=== PATIENT | female | born 1985 | race American Indian/Alaskan Native ===

== ENCOUNTER 2016-05-22 10:37 | Emergency (ER) | payer MEDICAID, OTHER ==
[2016-05-22 12:24] VITALS: BP 142/95
--- NOTE | 2016-05-22 15:32 | Emergency Department Report ---
Minor Respiratory - HPI Chief Complaint: Upper Respiratory Infection Stated Complaint: RESP/CONGESTION Time Seen by Provider: 05/22/16 15:27 Duration: 2 Days Pain Location: Throat, Nose Severity: mild Minor Respiratory: Yes Sore Throat, Yes Able to Tolerate Fluids, Yes Cough, Yes Sick Contacts (KID), Yes Chest Pain (W COUGH), Yes Fever (LAST PM), No Rhinorrhea, No Ear Pain, No Hemoptysis, No Shortness of Breath ED Review of Systems ROS: Stated complaint: RESP/CONGESTION Other details as noted in HPI Comment: All other systems reviewed and negative Constitutional: no symptoms reported Eyes: as per HPI ENT: ear pain, throat pain, congestion Respiratory: cough Cardiovascular: as per HPI Endocrine: no symptoms reported Gastrointestinal: as per HPI Genitourinary: as per HPI Musculoskeletal: as per HPI Skin: as per HPI Neurological: as per HPI Psychiatric: as per HPI Hematological/Lymphatic: as per HPI ED Past Medical Hx - Past Medical History Previous Medical History?: Yes Hx Hypertension: Yes Hx Congestive Heart Failure: No Hx Diabetes: No Hx Deep Vein Thrombosis: No Hx Renal Disease: No Hx Sickle Cell Disease: No Hx Headaches / Migraines: Yes Hx Seizures: No Hx Asthma: No Hx COPD: No Hx HIV: No - Surgical History Past Surgical History?: Yes Additional Surgical History: left knee surgeryRight ovarian cystectomy - Social History Smoking Status: Current Every Day Smoker Substance Use Type: None - Medications Home Medications: Home Medications Medication Instructions Recorded Confirmed Last Taken Type Azithromycin [Zithromax Z-LIZ] 250 mg PO DAILY #1 tablet 05/22/16 Unknown Rx Benzonatate [Tessalon Perles] 100 mg PO Q8HR #12 capsule 05/22/16 Unknown Rx Fluticasone [Flonase] 1 spray NS QDAY #1 bottle 05/22/16 Unknown Rx methylPREDNISolone [Medrol] 4 mg PO DAILY #1 tab.ds.pk 05/22/16 Unknown Rx Minor Respiratory Exam - Exam General: Vital signs noted. No distress. Alert and acting appropriately. HEENT: Yes Pharyngeal Erythema, Yes Moist Mucous Membranes, Yes Frontal Tenderness, Yes Maxillary Tenderness, No Pharyngeal Exudates, No Rhinorrhea, No Conjuctival Injection Ear: Neither TM Bulge, Neither TM Erythema, Neither EAC Pain, Neither EAC Discharge Neck: Yes Adenopathy, Yes Supple Lungs: Yes Good Air Exchange, No Wheezes, No Ronchi, No Stridor Neurologic: Alert and oriented, no deficits. Musculoskeletal: Unremarkable. ED Course Vital Signs 05/22/16 12:18 Temperature 98.3 F Pulse Rate 79 Respiratory 20 Rate Blood Pressure 142/95 O2 Sat by Pulse 99 Oximetry ED Medical Decision Making - Medical Decision Making CHILD ILL W SAME COLD COUGH CONGESTION VSS NO FEVER NON ILL APPEARING Critical care attestation.: If time is entered above; I have spent that time in minutes in the direct care of this critically ill patient, excluding procedure time. ED Disposition Clinical Impression: Upper respiratory infection, Sinusitis Disposition: DISCHARGED TO HOME OR SELFCARE Is pt being admited?: No Does the pt Need Aspirin: No Condition: Good Instructions: Pharyngitis (ED), Upper Respiratory Infection (ED) Additional Instructions: REST FLUIDS MOTRIN OR TYLENOL FOR PAIN OR FEVER GOOD HAND WASHING MEDS UNTIL GONE. Prescriptions: Azithromycin [Zithromax Z-LIZ] 250 mg PO DAILY #1 tablet Benzonatate [Tessalon Perles] 100 mg PO Q8HR #12 capsule Fluticasone [Flonase] 1 spray NS QDAY #1 bottle methylPREDNISolone [Medrol] 4 mg PO DAILY #1 tab.ds.pk Referrals: ANA ALLEN MD [Primary Care Provider] - 3-5 Days Time of Disposition: 15:31
--- NOTE | 2016-05-22 15:35 | Emergency Department Report ---
Entered by TATYANA BEEBE, acting as scribe for FAITH SILVA NP. Chief Complaint: Upper Respiratory Infection Stated Complaint: RESP/CONGESTION Time Seen by Provider: 05/22/16 15:20 - HPI History of Present Illness: Patient presents to the ED c/o an upper respiratory infection. Associated symptoms include sore throat, headache, nausea, fever, cough with green sputum, vomiting with minimal blood, chest pain due to cough, drainage. - ROS Review of Systems: All other systems negative unless stated in HPI above. - Exam Vital Signs: Vital Signs 05/22/16 12:18 Temperature 98.3 F Pulse Rate 79 Respiratory 20 Rate Blood Pressure 142/95 O2 Sat by Pulse 99 Oximetry Physical Exam: Respiratory: lungs sounds clear bilaterally, no rales, no wheezes, no gallops. Neck: supple, FROM, no lymphadenopathy MSE screening note: Focused history and physical exam performed. Due to findings the following was ordered: ED Medical Decision Making - Medical Decision Making Patient seen by provider in triage area. ED Disposition [place] [facility] [place]position: DISCHARGED TO HOME OR SELFCARE Condition: Good Instructions: Pharyngitis (ED), Upper Respiratory Infection (ED) Additional Instructions: REST FLUIDS MOTRIN OR TYLENOL FOR PAIN OR FEVER GOOD HAND WASHING MEDS UNTIL GONE. Prescriptions: Azithromycin [Zithromax Z-LIZ] 250 mg PO DAILY #1 tablet Benzonatate [Tessalon Perles] 100 mg PO Q8HR #12 capsule Fluticasone [Flonase] 1 spray NS QDAY #1 bottle methylPREDNISolone [Medrol] 4 mg PO DAILY #1 tab.ds.pk Referrals: ANA ALLEN MD [Primary Care Provider] - 3-5 Days This documentation as recorded by the scribe,TATYANA BEEBE,accurately reflects the service I personally performed and the decisions made by ROBERT michaels CATHLEEN A, NP.
== END 2016-05-22 15:50 | disposition home or self-care (01) ==
LOC: ED 10:37
DX: J06.9 Acute upper respiratory infection, unspecified (principal); J32.9 Chronic sinusitis, unspecified
CPT/HCPCS: 99283

== ENCOUNTER 2017-08-11 06:45 | Emergency (ER) | payer MEDICAID ==
--- NOTE | 2017-08-11 08:07 | Emergency Department Report ---
ED Back Pain/Injury HPI - General Chief Complaint: Back Pain/Injury Stated Complaint: BACK/NECK PAIN Time Seen by Provider: 08/11/17 07:41 Source: patient Limitations: No Limitations - History of Present Illness Initial Comments: This is a 32-year-old -Spanish female who presents with neck and low back pain that started yesterday. Patient thinks she pulled something while cleaning home yesterday prior to going to work. She states her back and maybe was a little achy prior to going to work she went in any way. Patient states the symptoms increased around 0300 to low back. Patient stated she couldn't barely walk secondary to pain. Patient reports pain is 10 out of 10 on a pain scale and sharp. Patient reports pain is bilateral but worse on right lower side. Patient states pain is aggravated by movement and is nonradiating. Patient reports make pain hasn't improved that she is still requesting evaluation. Denies numbness or tingling, radiating pain, chest pain, shortness of breath, fever, nausea or vomiting. MD Complaint: back pain -: This morning Time: 03:00 Similar Symptoms Previously: No Place: home Radiation: none Severity: severe Severity scale (0 -10): 10 Quality: sharp, aching Consistency: constant Improves With: immobilization, supine Worsens With: movement, sitting upright, walking Context: unknown Associated Symptoms: denies other symptoms - Related Data Previous Rx's Medication Instructions Recorded Last Taken Type Azithromycin [Zithromax Z-LIZ] 250 mg PO DAILY #1 tablet 05/22/16 Unknown Rx Benzonatate [Tessalon Perles] 100 mg PO Q8HR #12 capsule 05/22/16 Unknown Rx Fluticasone [Flonase] 1 spray NS QDAY #1 bottle 05/22/16 Unknown Rx methylPREDNISolone [Medrol] 4 mg PO DAILY #1 tab.ds.pk 05/22/16 Unknown Rx Acetaminophen/Codeine [Tylenol 1 tab PO Q6H PRN #12 tab 08/11/17 Unknown Rx /Codeine # 3 tab] Cyclobenzaprine HCl [Flexeril 5 MG 5 mg PO TID PRN #15 tab 08/11/17 Unknown Rx TAB] Ibuprofen [Motrin 800 MG tab] 800 mg PO Q8HR PRN #20 tablet 08/11/17 Unknown Rx Allergies Allergy/AdvReac Type Severity Reaction Status Date / Time butorphanol tartrate Allergy Swelling Verified 08/11/17 06:56 [From Stadol] Sulfa (Sulfonamide Allergy Itching Verified 08/11/17 06:56 Antibiotics) ED Review of Systems ROS: Stated complaint: BACK/NECK PAIN Other details as noted in HPI Constitutional: denies: chills, fever Respiratory: denies: cough, shortness of breath, wheezing Cardiovascular: denies: chest pain, palpitations Gastrointestinal: denies: abdominal pain, nausea, vomiting, diarrhea Genitourinary: denies: urgency, dysuria, frequency, discharge Musculoskeletal: back pain (bilateral low back pain, worse on the right), arthralgia (neck pain). denies: joint swelling Skin: denies: rash, lesions Neurological: denies: headache, weakness, paresthesias Psychiatric: denies: anxiety, depression ED Past Medical Hx Family history: no significant family history ED Back Pain Physical Exam - Exam General: Vital signs noted. No distress. Alert and acting appropriately. Back/Abdomen: Yes Sacroiliac Tenderness (bilateral), Yes Flank Tenderness ( right flank), No Abdominal Tenderness, No Perithoracic Tenderness, No Perilumbar Tenderness, No Straight Leg Raise Pain Neuro: Yes Normal Sensation, Yes Normal DTR's, Yes Normal Gait, No Motor Weakness ED Course Vital Signs 08/11/17 06:56 Temperature 98.5 F Pulse Rate 92 H Respiratory 16 Rate Blood Pressure 118/77 O2 Sat by Pulse 97 Oximetry Ed Back Pain Tests - Tests Tests: Normal UA, Abnormal X Rays ED Medical Decision Making - Radiology Data Radiology results: report reviewed EXAM: XR SPINE LUMBOSACRAL 2-3V HISTORY: right side low back pain TECHNIQUE: Three views lumbar spine. PRIORS: None currently available. FINDINGS: Lordotic alignment. Vertebral body heights are uniform. No fracture. Mild to moderate disc space narrowing L5-S1. Otherwise, disc spaces are uniform. No subluxation. Posterior elements are intact. Prevertebral soft tissues are unremarkable. No scoliosis. No suspicious osseous lesions. No vertebral anomalies. SI joints are unremarkable. IMPRESSION: Exut-np-wgesiwjf discogenic disease at L5-S1. XR C-Spine: Mild degenerative disc at C5 to C7. Nonspecific straightening of the normal lordotic alignment. - Medical Decision Making This is a 32 y.o. female presents with neck and low back pain that started yesterday after cleaning home. Patient was examined by me. Vitals are normal and patient is in slight distress. Given [place] 5/325 mg by mouth once. Obtained a urinalysis, urine hCG, x-ray of C-spine and L-spine. X-rays read by radiologist. Alwl-gy-mxazerts discogenic disease at L5-S1. XR C-Spine: Mild degenerative disc at C5 to C7. Nonspecific straightening of the normal lordotic alignment. Urinalysis and urine hCG negative. Patient informed of results. Start ibuprofen, Tylenol #3, and cyclobenzaprine for muscle strain. Plan discussed with patient to discharge home and treat outpatient. Patient discharged home in stable condition. Follow up with PCP in 2-3 days Critical care attestation.: If time is entered above; I have spent that time in minutes in the direct care of this critically ill patient, excluding procedure time. ED Disposition Clinical Impression: Strain of muscle, fascia and tendon of lower back, initial encounter, Neck pain Low back pain Qualifiers: Chronicity: acute Back pain laterality: right Sciatica presence: without sciatica Qualified Code(s): M54.5 - Low back pain Disposition: DC- TO HOME OR SELFCARE Is pt being admited?: No Does the pt Need Aspirin: No Condition: Stable Instructions: Low Back Strain (ED), Cervical Radiculopathy (ED) Additional Instructions: Rest Use ice or heat on affected area for 20 minutes and off for 2 hours. Take pain medication as needed for pain. Don't drive or operate heavy machinery while taking muscle relaxers because they may cause drowsiness. Follow up with Primary Care Provider in 2-3 days. Prescriptions: Acetaminophen/Codeine [Tylenol /Codeine # 3 tab] 1 tab PO Q6H PRN #12 tab PRN Reason: Pain , Severe (7-10) Cyclobenzaprine HCl [Flexeril 5 MG TAB] 5 mg PO TID PRN #15 tab PRN Reason: Muscle Spasm Ibuprofen [Motrin 800 MG tab] 800 mg PO Q8HR PRN #20 tablet PRN Reason: Pain, Moderate (4-6) Referrals: [facility] [Outside] - 3-5 Days [facility] [Outside] - 3-5 Days [facility] [Outside] - 3-5 Days Forms: Work/School Release Form(ED) Time of Disposition: 11:03 Print Language: [place] ED Neck EXAM - General Limitations: No Limitations
[2017-08-11] MEDS ORDERED: NORCO 5/325 PO ONE (08:26)
[2017-08-11 08:42] LABS: Bilirubin,Urine NEG (Negative); Blood,Urine NEG (Negative); Color,Urine Yellow (Yellow); Mucus,Urine FEW /HPF; Protein,Urine <15 mg/dL mg/dL (Negative)
[2017-08-11 08:49] LABS: HCG Qualitative,Urine Negative (Negative)
--- NOTE | 2017-08-11 10:38 | XRay Report ---
FINAL REPORT EXAM: XR SPINE LUMBOSACRAL 2-3V HISTORY: right side low back pain TECHNIQUE: Three views lumbar spine. PRIORS: None currently available. FINDINGS: Lordotic alignment. Vertebral body heights are uniform. No fracture. Mild to moderate disc space narrowing L5-S1. Otherwise, disc spaces are uniform. No subluxation. Posterior elements are intact. Prevertebral soft tissues are unremarkable. No scoliosis. No suspicious osseous lesions. No vertebral anomalies. SI joints are unremarkable. IMPRESSION: Nczd-oq-[id number] discogenic disease at L5-S1.
--- NOTE | 2017-08-11 10:39 | XRay Report ---
FINAL REPORT EXAM: XR SPINE CERVICAL 2-3V HISTORY: neck pain TECHNIQUE: Five views cervical spine. PRIORS: None currently available. FINDINGS: Nonspecific straightening of the normal lordotic alignment. Slight reversal at the C5-C6 level. Mild disc space narrowing C5-C7. No fracture. No subluxation. C1-C2 articulation appears intact. No scoliosis. No suspicious osseous lesions. No vertebral anomalies. IMPRESSION: Mild degenerative disc at C5-C7. Nonspecific straightening of the normal lordotic alignment.
[2017-08-11] MEDS ORDERED: FLEXERIL PO ONE ×2 (10:55→11:02)
[2017-08-11 11:19] VITALS: BP 110/66
== END 2017-08-11 11:15 | disposition home or self-care (01) ==
LOC: ED 06:45
DX: S39.012A Strain of muscle, fascia and tendon of lower back, initial encounter (principal); M54.2 Cervicalgia; Z88.2 Allergy status to sulfonamides; Z88.8 Allergy status to other drugs, medicaments and biological substances; X58.XXXA Exposure to other specified factors, initial encounter; Y93.E9 Activity, other interior property and clothing maintenance; Y99.8 Other external cause status; Y92.098 Other place in other non-institutional residence as the place of occurrence of the external cause
CPT/HCPCS: 72040; 72100; 81001; 81025

== ENCOUNTER 2018-09-04 13:27 | Emergency (ER) | payer MEDICAID ==
[2018-09-04 13:43] VITALS: BP 129/84
--- NOTE | 2018-09-04 13:46 | Event Note ---
ED Screening Note Date of service: 09/04/18 Time: 13:42 ED Screening Note: This is a 33 y.o. F. that presents to the ER with low back pain radiating to RLE x 3 weeks and worsening. PMH of bulging disc to lower back. Recent fall 3 weeks ago aggravating lower back. LMP 08/06/2018 This initial assessment/diagnostic orders/clinical plan/treatment(s) is/are subject to change based on patients health status, clinical progression and re- assessment by fellow clinical providers in the ED. Further treatment and workup at subsequent clinical providers discretion. Patient/guardian urged not to elope from the ED as their condition may be serious if not clinically assessed and managed. Initial orders include: XR of C-spine
--- NOTE | 2018-09-04 14:40 | XRay Report ---
LUMBOSACRAL SPINE 2 VIEWS INDICATION / CLINICAL INFORMATION: Fall with low back pain. COMPARISON: 08/11/2017. FINDINGS: BONES / JOINT(S): The vertebral body heights and disc spaces are well-maintained. The pedicles are in tact and the SI joints are normal. There is no evidence of fracture or subluxation. SOFT TISSUES: No significant abnormality. ADDITIONAL FINDINGS: None. IMPRESSION: No acute abnormality or significant change. Signer Name: Charles Banuelos MD Signed: 09/04/2018 2:35 PM Workstation Name: [id number]
[2018-09-04] MEDS ORDERED: TORADOL IM ONE (14:43)
[2018-09-04] MEDS ORDERED: DELTASONE PO ONE (14:43)
[2018-09-04] MEDS ORDERED: FLEXERIL PO ONE (14:43)
--- NOTE | 2018-09-04 14:55 | Emergency Department Report ---
ED Back Pain/Injury HPI - General Chief Complaint: Back Pain/Injury Stated Complaint: BACK PAIN Time Seen by Provider: 09/04/18 13:42 Source: patient Limitations: No Limitations - History of Present Illness Initial Comments: This is a 33-year-old female nontoxic, well nourished in appearance, no acute signs of distress presents to the ED with c/o of acute on chronic lower back pain. Patient stated that the past 2 days she had a fall and developed this pain. Patient states has history of sciatica nerve pain which is similar symptoms as today. Patient states that pain radiates through to his right lower extremity. Patient denies any trauma. Denies any bladder or bowel instability. Patient denies any urinary symptoms. Denies any fever, chills, nausea, vomiting, headache, stiff neck, chest pain or shortness of breath. Patient denies any numbness or tingling. Allergies to sulfa. Past medical history includes lumbar disc herniation. MD Complaint: back pain -: days(s) Similar Symptoms Previously: Yes Radiation: right leg Severity: mild Severity scale (0 -10): 8 Quality: aching Consistency: intermittent Improves With: immobilization, sitting upright Worsens With: movement, walking Context: fall Associated Symptoms: denies other symptoms. denies: confusion, weakness, chest pain, numbness, difficulty walking, cough, difficulty urinating, diaphoresis, incontinence, fever/chills, constipation, headaches, abdominal pain, loss of appetite, malaise, nausea/vomiting, rash, seizure, shortness of breath, syncope - Related Data Home Medications Medication Instructions Recorded Confirmed Last Taken Ibuprofen [Motrin 800 MG tab] 800 mg PO Q8H PRN 06/19/18 07/11/18 Unknown Naproxen [Naprosyn] 375 mg PO BID PRN 06/19/18 07/11/18 Unknown Previous Rx's Medication Instructions Recorded Last Taken Type Cyclobenzaprine [Flexeril] 10 mg PO QHS PRN #10 tablet 09/04/18 Unknown Rx Ibuprofen [Motrin] 600 mg PO Q8H PRN #20 tablet 09/04/18 Unknown Rx Allergies Allergy/AdvReac Type Severity Reaction Status Date / Time butorphanol tartrate Allergy Swelling Verified 09/04/18 13:43 [From Stadol] Sulfa (Sulfonamide Allergy Itching Verified 09/04/18 13:43 Antibiotics) ED Review of Systems ROS: Stated complaint: BACK PAIN Other details as noted in HPI Constitutional: denies: chills, fever Eyes: denies: eye pain, eye discharge, vision change ENT: denies: ear pain, throat pain Respiratory: denies: cough, shortness of breath, wheezing Cardiovascular: denies: chest pain, palpitations Endocrine: no symptoms reported Gastrointestinal: denies: abdominal pain, nausea, diarrhea Genitourinary: denies: urgency, dysuria, discharge Musculoskeletal: back pain. denies: joint swelling, arthralgia Skin: denies: rash, lesions Neurological: denies: headache, weakness, paresthesias Psychiatric: denies: anxiety, depression Hematological/Lymphatic: denies: easy bleeding, easy bruising ED Past Medical Hx - Past Medical History Previous Medical History?: Yes Hx Diabetes: No Hx GERD: Yes Hx Renal Disease: No Hx Arthritis: Yes (Knee, back) - Surgical History Past Surgical History?: Yes Additional Surgical History: left knee surgeryRight ovarian cystectomy - Social History Smoking Status: Former Smoker - Medications Home Medications: Home Medications Medication Instructions Recorded Confirmed Last Taken Type Ibuprofen [Motrin 800 MG tab] 800 mg PO Q8H PRN 06/19/18 07/11/18 Unknown History Naproxen [Naprosyn] 375 mg PO BID PRN 06/19/18 07/11/18 Unknown History Cyclobenzaprine [Flexeril] 10 mg PO QHS PRN #10 tablet 09/04/18 Unknown Rx Ibuprofen [Motrin] 600 mg PO Q8H PRN #20 tablet 09/04/18 Unknown Rx ED Physical Exam - General Limitations: No Limitations General appearance: alert, in no apparent distress - Head Head exam: Present: atraumatic, normocephalic - Neck Neck exam: Present: normal inspection, full ROM. Absent: tenderness, meningismus, lymphadenopathy - Extremities Exam Extremities exam: Present: normal inspection, full ROM - Back Exam Back exam: Present: normal inspection, full ROM, paraspinal tenderness (right lumbar paraspinal). Absent: tenderness, CVA tenderness (R), CVA tenderness (L), muscle spasm, vertebral tenderness, rash noted - Expanded Back Exam Expanded Back exam: Absent: saddle anesthesia Back exam: Negative Straight Leg Raising: Left, Right - Neurological Exam Neurological exam: Present: alert, oriented X3, normal gait - Psychiatric Psychiatric exam: Present: normal affect, normal mood - Skin Skin exam: Present: warm, dry, intact, normal color. Absent: rash ED Course Vital Signs 09/04/18 13:42 Temperature 97.9 F Pulse Rate 96 H Respiratory 20 Rate Blood Pressure 129/84 [Right] O2 Sat by Pulse 98 Oximetry - Reevaluation(s) Reevaluation #1: 09/04/18 14:52 Patient is speaking in full sentences with no signs of distress noted. ED Medical Decision Making - Medical Decision Making This is a 33-year-old female that presents with low back strain. Patient is stable was examined by me. There is no spinal tenderness. There is no cauda equina syndrome during examination. No bladder or bowel instability. Patient received Toradol 60 mg IM, p[rednisone and flexeril in the ED which stated that his symptoms has resolved and subsided. Patient was notified not to operate any machinery after discharge as stated a family member. Patient home due to possible drowsiness of Flexeril. Patient is discharged with muscle relaxant and Motrin. Patient was instructed not to operate any machinery while taking muscle relaxant as they cause her drowsiness. Patient was referred to Follow-up with a primary care doctor in 3-5 days or if symptoms worsen and continue return to emergency room as soon as possible. At time of discharge, the patient does not seem toxic or ill in appearance. No acute signs of distress noted. Patient agrees to discharge treatment plan of care. No further questions noted by the patient. This chart is dictated with using [employer]ation [employer] Critical care attestation.: If time is entered above; I have spent that time in minutes in the direct care of this critically ill patient, excluding procedure time. ED Disposition Clinical Impression: Low back strain Qualifiers: Encounter type: initial encounter Qualified Code(s): S39.012A - Strain of muscle, fascia and tendon of lower back, initial encounter Disposition: TO HOME OR SELFCARE Is pt being admited?: No Does the pt Need Aspirin: No Condition: Stable Instructions: Low Back Strain (ED), Cyclobenzaprine (By mouth) Additional Instructions: Follow-up with your primary care doctor in 3-5 days or if symptoms worsen such as bladder or bowel stability, chest pain, short of breath, numbness or tingling sensation in extremities, headache, dizziness, visual changes, nausea vomiting, or abdominal pain, return back to emergency room as was possible. Take ibuprofen and Flexeril as prescribed. Do not operate heavy machinery while taking Flexeril due to sedation Prescriptions: Cyclobenzaprine [Flexeril] 10 mg PO QHS PRN #10 tablet PRN Reason: Muscle Spasm Ibuprofen [Motrin] 600 mg PO Q8H PRN #20 tablet PRN Reason: Pain [facility] [Primary Care Provider[facility] - 3-5 Days PRIMARY CAREMD [Referring] - 3-5 Days MATEUS SOLOMON MD [Staff Physician] - 3-5 Days [facility] [Outside] - 3-5 Days [facility] [Outside] - 3-5 Days Forms: Work/School Release Form(ED)
== END 2018-09-04 15:34 | disposition home or self-care (01) ==
LOC: ED 13:27
DX: S39.012A Strain of muscle, fascia and tendon of lower back, initial encounter (principal); K21.0 Gastro-esophageal reflux disease with esophagitis; M19.90 Unspecified osteoarthritis, unspecified site; Z98.890 Other specified postprocedural states; Z87.891 Personal history of nicotine dependence; Z79.899 Other long term (current) drug therapy; Z88.2 Allergy status to sulfonamides; Z88.8 Allergy status to other drugs, medicaments and biological substances; W18.30XA Fall on same level, unspecified, initial encounter; Y93.89 Activity, other specified; Y92.89 Other specified places as the place of occurrence of the external cause; Y99.8 Other external cause status
CPT/HCPCS: 72100; 96372; 99283; J1885; J7512

== ENCOUNTER 2018-12-02 13:07 | Outpatient (CLI) | payer MEDICAID ==
--- NOTE | 2018-12-02 15:28 | Ultrasound Report ---
OB Ultrasound HISTORY: R10.2 PELVIC PERINEAL PAIN.N91.1 SECONDARY AMENORRHEA. TECHNIQUE: Grayscale and color Doppler imaging performed. COMPARISON: None FINDINGS: Transabdominal and endovaginal imaging was performed. Uterus measures 8.2 x 4.6 x 5.7 cm with endometrial complex measuring 2 cm. A tiny (3 mm) cystic stru cture is seen in the region of the uterine fundus. There is trace simple pelvic free fluid. A hemorrh agic cyst measuring 2.6 cm is seen in the right ovary and there is an adjacent simple cyst measuring 2.6 cm as well. IMPRESSION: 1. No intrauterine gestation identified. Tiny cystic structure in the uterine fundus could represent an early gestation and--correlate with beta hCG and follow-up ultrasound as indicated. 2. Simple right ovarian cyst and hemorrhagic right ovarian cyst. 3. Small volume simple pelvic free fluid. Signer Name: Byron Burroughs MD Signed: 12/02/2018 3:23 PM Workstation Name: [id number]
== END 2018-12-02 13:08 | disposition home or self-care (01) ==
LOC: US 13:07
PROVIDERS: ATTEND Obstetrics & Gynecology
DX: O34.82 Maternal care for other abnormalities of pelvic organs, second trimester (principal); N83.291 Other ovarian cyst, right side; Z3A.14 14 weeks gestation of pregnancy
CPT/HCPCS: 76801; 76817

== ENCOUNTER 2018-12-16 22:17 | Emergency (ER) | payer MEDICAID ==
[2018-12-16] MEDS ORDERED: ONDANSETRON 4 MG/2 ML INJ IV ONE (22:40)
[2018-12-16] MEDS ORDERED: MORPHINE 4 MG/1 ML INJ IV ONE ×2 (22:40→23:58)
[2018-12-16] MEDS ORDERED: oxyCODONE /ACETAMINOPHEN 5-325MG TAB PO ONE ×2 (22:40→23:58)
--- NOTE | 2018-12-16 22:47 | Emergency Department Report ---
ED Fall HPI - General Chief Complaint: Fall Stated Complaint: FELL IN TUB Time Seen by Provider: 12/16/18 22:36 Source: patient, EMS Mode of arrival: Stretcher Limitations: No Limitations - History of Present Illness Initial Comments: Ani is a 33 yo female who presents with back pain, right shoulder pain and abdominal pain after fall in tub. She slipped on soap. She called 911 from her cellphone. Severe pain. She is . She has not received care as of yet. She has mild abdominal pain. No head trauma. Arrived by EMS. 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: home Loss of Consciousness: none Prolonged Down Time?: no Symptoms Prior to Fall: none Location: back Location - Extremities: Right: Shoulder Severity: severe Severity scale (0 -10): 10 Quality: sharp Context: tripped/slipped Associated Symptoms: abdominal pain - Related Data Home Medications Medication Instructions Recorded Confirmed Last Taken Ibuprofen [Motrin 800 MG tab] 800 mg PO Q8H PRN 06/19/18 07/11/18 Unknown Naproxen [Naprosyn] 375 mg PO BID PRN 06/19/18 07/11/18 Unknown Previous Rx's Medication Instructions Recorded Last Taken Type Cyclobenzaprine [Flexeril] 10 mg PO QHS PRN #10 tablet 09/04/18 Unknown Rx Ibuprofen [Motrin] 600 mg PO Q8H PRN #20 tablet 09/04/18 Unknown Rx HYDROcodone/APAP 5-325 [[place] 1 each PO Q6HR PRN #10 tablet 12/17/18 Unknown Rx 5/325] Allergies Allergy/AdvReac Type Severity Reaction Status Date / Time butorphanol tartrate Allergy Swelling Verified 09/04/18 13:43 [From Stadol] Sulfa (Sulfonamide Allergy Itching Verified 09/04/18 13:43 Antibiotics) ED Review of Systems ROS: Stated complaint: FELL IN TUB Other details as noted in HPI Comment: All other systems reviewed and negative Constitutional: denies: fever, malaise Respiratory: denies: cough Cardiovascular: denies: chest pain ED Past Medical Hx - Past Medical History Previous Medical History?: Yes Hx Diabetes: No Hx GERD: Yes Hx Renal Disease: No Hx Arthritis: Yes (Knee, back) - Surgical History Past Surgical History?: Yes Additional Surgical History: left knee surgeryRight ovarian cystectomy - Social History Smoking Status: Former Smoker Substance Use Type: None - Medications Home Medications: Home Medications Medication Instructions Recorded Confirmed Last Taken Type Ibuprofen [Motrin 800 MG tab] 800 mg PO Q8H PRN 06/19/18 07/11/18 Unknown History Naproxen [Naprosyn] 375 mg PO BID PRN 06/19/18 07/11/18 Unknown History Cyclobenzaprine [Flexeril] 10 mg PO QHS PRN #10 tablet 09/04/18 Unknown Rx Ibuprofen [Motrin] 600 mg PO Q8H PRN #20 tablet 09/04/18 Unknown Rx HYDROcodone/APAP 5-325 [[place] 1 each PO Q6HR PRN #10 tablet 12/17/18 Unknown Rx 5/325] ED Physical Exam - General Limitations: No Limitations General appearance: alert, other (tearful, appears in severe pain) - Head Head exam: Present: atraumatic, normocephalic - Eye Eye exam: Present: normal appearance - ENT ENT exam: Present: mucous membranes moist - Neck Neck exam: Present: normal inspection, full ROM - Respiratory Respiratory exam: Present: normal lung sounds bilaterally. Absent: respiratory distress, wheezes, rales, rhonchi - Cardiovascular Cardiovascular Exam: Present: regular rate, normal rhythm, normal heart sounds. Absent: systolic murmur, diastolic murmur, rubs, gallop - GI/Abdominal GI/Abdominal exam: Present: soft, normal bowel sounds. Absent: distended, tenderness, guarding, rebound - Extremities Exam Extremities exam: Present: normal inspection - Back Exam Back exam: Present: other (patient refuses to turn or move for exam.) - Neurological Exam Neurological exam: Present: alert, oriented X3 - Psychiatric Psychiatric exam: Present: normal affect, normal mood - Skin Skin exam: Present: warm, dry, intact, normal color. Absent: rash ED Course Vital Signs 12/16/18 12/17/18 12/17/18 22:30 01:03 01:05 Temperature 97.6 F Pulse Rate 120 H Respiratory 26 H 16 16 Rate Blood Pressure 128/51 Blood Pressure 128/51 [Left] O2 Sat by Pulse 100 Oximetry ED Medical Decision Making - Lab Data Laboratory Results - last 24 hr 12/16/18 12/16/18 23:54 23:54 HCG, Quant [id number] H Blood Type O POSITIVE Ord Rhogam Gestat Weeks Rh pos - Radiology Data Radiology results: report reviewed Ultrasound: According to radiology impression single living IUP estimated gestational age 6 weeks 1 day very small inferior subchorionic hemorrhage, bilateral complex ovarian masses most likely representing hemorrhagic right corpus luteum cyst and small complicated left ovarian cysts Radiology impression: Right shoulder no fracture or dislocation identified significant degenerative changes visualized right ribs are intact - Medical Decision Making Mrs. Willson presents after fall in shower tub. She presents with right upper back pain and shoulder pain, she presents with lower back pain and abdominal pain. She is concerned about new . She has a viable IUP without evidence of ectopic . She does also have bilateral ovarian cysts I have prescribed 10 tablets of [place]. 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 Marty Franklin. She is neurologically intact. right shoulder sprain: given sling for comfort Blood type O+. Critical care attestation.: If time is entered above; I have spent that time in minutes in the direct care of this critically ill patient, excluding procedure time. ED Disposition Clinical Impression: Fall in (into) shower or empty bathtub, initial encounter, Right shoulder pain, Low back pain, Abdominal pain, Ovarian cyst, First trimester Disposition: DC- TO HOME OR SELFCARE Is pt being admited?: No Does the pt Need Aspirin: No Condition: Stable Additional Instructions: Her ultrasound reveals that you are 6 weeks and 1 day . Your estimated due date is August 11, 2019 Prescriptions: HYDROcodone/APAP 5-325 [[place] 5/325] 1 each PO Q6HR PRN #10 tablet PRN Reason: Pain Referrals: MARTY FRANKLIN MD [Staff Physician] - 3-5 Days
--- NOTE | 2018-12-17 00:33 | Ultrasound Report ---
ULTRASOUND OBSTETRIC INDICATION / CLINICAL INFORMATION: trauma. Clinical Gestational Age (GA): 7 weeks 0 days TECHNIQUE: Transabdominal. Transvaginal color Doppler ultrasound performed COMPARISON: Prior OB ultrasound 12/02/2018 FINDINGS: GESTATIONAL SAC: Well-defined oval shape and intrauterine in location. YOLK SAC: No significant abnormality. EMBRYO/FETUS: No significant abnormality. - [place]-Rump Length = 0.46 cm = 6 weeks, 1 day(s). - Heart Rate, beats per minute (if present) = 89 bpm ADNEXA: Complex cystic mass is present in the right ovary measuring 2.9 x 2.4 cm. This was noted on t he prior study and thought to represent hemorrhagic corpus luteal cyst. Complex cystic area noted in the left ovary measuring 1.6 cm. Color Doppler ultrasound performed on both ovaries with blood flow demonstrated. FREE FLUID: Minimal ADDITIONAL FINDINGS: Small subchorionic hemorrhage is identified, measuring approximately 8 mm inferi or to the gestational sac. IMPRESSION: 1. Single living IUP with estimated gestational age of 6 weeks 1 day. 2. Very small inferior subchorionic hemorrhage. 3. Bilateral complex ovarian masses more than likely representing hemorrhagic right corpus luteum cys t and left small complicated cyst. Signer Name: Vanna Tsai MD Signed: 12/17/2018 12:29 AM Workstation Name: [id number]
--- NOTE | 2018-12-17 00:50 | XRay Report ---
RIGHT SHOULDER, 3 VIEWS INDICATION / CLINICAL INFORMATION: shoulder pain. COMPARISON: None available. FINDINGS: No fracture or dislocation identified. No significant degenerative change. Visualized right ribs are intact. IMPRESSION: Negative exam. Signer Name: Vanna Tsai MD Signed: 12/17/2018 12:45 AM Workstation Name: [id number]
[2018-12-17 01:29] VITALS: BP 142/81
== END 2018-12-17 02:00 | disposition home or self-care (01) ==
LOC: ED 22:17
DX: O9A.211 Injury, poisoning and certain other consequences of external causes complicating pregnancy, first trimester (principal); O34.81 Maternal care for other abnormalities of pelvic organs, first trimester; N83.209 Unspecified ovarian cyst, unspecified side; M25.511 Pain in right shoulder; M54.5 Low back pain; Z88.2 Allergy status to sulfonamides; Z88.8 Allergy status to other drugs, medicaments and biological substances; Z79.1 Long term (current) use of non-steroidal anti-inflammatories (NSAID); Z79.899 Other long term (current) drug therapy; Z87.891 Personal history of nicotine dependence; Z3A.01 Less than 8 weeks gestation of pregnancy; W18.11XA Fall from or off toilet without subsequent striking against object, initial encounter; Y93.89 Activity, other specified; Y92.091 Bathroom in other non-institutional residence as the place of occurrence of the external cause; Y99.8 Other external cause status
CPT/HCPCS: 36415; 73030; 76801; 76817; 84702; 86900; 86901; 96374; 96375; 96376; 99285; J2270; J2405; 96372

== ENCOUNTER 2019-01-18 11:36 | Emergency (ER) | payer MEDICAID ==
[2019-01-18] MEDS ORDERED: SODIUM CHLORIDE 0.9% 1000 ML 1,000 ML IV ONE (11:59)
[2019-01-18] MEDS ORDERED: ONDANSETRON 4 MG/2 ML INJ IV ONE (12:04)
--- NOTE | 2019-01-18 12:05 | Emergency Department Report ---
ED General Adult HPI - General Stated complaint: PASSED OUT Time Seen by Provider: 01/18/19 12:13 Source: patient - History of Present Illness Initial comments: 33 yo female 10 weeks patient states she is unable to keep any food down and has been vomiting many times per day over the last 3 weeks. She states when she woke up she was on the floor and does not recall exactly what happened. She is now complaining of generalized bodyaches lower abdominal pain. denies vaginal bleeding, denies fever cough and chills. Associated Symptoms: other (fatigue, bodyaches,) Treatments Prior to Arrival: none - Related Data Home Medications Medication Instructions Recorded Confirmed Last Taken Ibuprofen [Motrin 800 MG tab] 800 mg PO Q8H PRN 06/19/18 07/11/18 Unknown Naproxen [Naprosyn] 375 mg PO BID PRN 06/19/18 07/11/18 Unknown Previous Rx's Medication Instructions Recorded Last Taken Type Cyclobenzaprine [Flexeril] 10 mg PO QHS PRN #10 tablet 09/04/18 Unknown Rx Ibuprofen [Motrin] 600 mg PO Q8H PRN #20 tablet 09/04/18 Unknown Rx HYDROcodone/APAP 5-325 [[place] 1 each PO Q6HR PRN #10 tablet 12/17/18 Unknown Rx 5/325] Ondansetron [Zofran Odt] 4 mg PO Q8HR PRN #20 tab.rapdis 01/18/19 Unknown Rx Promethazine [Phenergan] 25 mg PO Q6HR PRN #24 tab 01/18/19 Unknown Rx Allergies Allergy/AdvReac Type Severity Reaction Status Date / Time butorphanol tartrate Allergy Swelling Verified 09/04/18 13:43 [From Stadol] Sulfa (Sulfonamide Allergy Itching Verified 09/04/18 13:43 Antibiotics) ED Review of Systems ROS: Stated complaint: PASSED OUT Other details as noted in HPI Comment: All other systems reviewed and negative Constitutional: no symptoms reported Respiratory: denies: cough, shortness of breath, wheezing Cardiovascular: denies: chest pain, palpitations, dyspnea on exertion Endocrine: no symptoms reported Gastrointestinal: abdominal pain, nausea, vomiting Genitourinary: denies: urgency, dysuria, hematuria, discharge Neurological: headache, other (generalized bodyaches). denies: confusion ED Past Medical Hx - Past Medical History Hx Diabetes: No Hx GERD: Yes Hx Renal Disease: No Hx Arthritis: Yes (Knee, back) - Surgical History Additional Surgical History: left knee surgeryRight ovarian cystectomy - Social History Smoking Status: Former Smoker Substance Use Type: None - Medications Home Medications: Home Medications Medication Instructions Recorded Confirmed Last Taken Type Ibuprofen [Motrin 800 MG tab] 800 mg PO Q8H PRN 06/19/18 07/11/18 Unknown History Naproxen [Naprosyn] 375 mg PO BID PRN 06/19/18 07/11/18 Unknown History Cyclobenzaprine [Flexeril] 10 mg PO QHS PRN #10 tablet 09/04/18 Unknown Rx Ibuprofen [Motrin] 600 mg PO Q8H PRN #20 tablet 09/04/18 Unknown Rx HYDROcodone/APAP 5-325 [[place] 1 each PO Q6HR PRN #10 tablet 12/17/18 Unknown Rx 5/325] Ondansetron [Zofran Odt] 4 mg PO Q8HR PRN #20 tab.rapdis 01/18/19 Unknown Rx Promethazine [Phenergan] 25 mg PO Q6HR PRN #24 tab 01/18/19 Unknown Rx ED Physical Exam - General General appearance: alert, in no apparent distress - Head Head exam: Present: atraumatic, normocephalic, normal inspection - Eye Eye exam: Present: normal appearance, PERRL, EOMI. Absent: scleral icterus, conjunctival injection - ENT ENT exam: Present: normal exam, mucous membranes moist, TM's normal bilaterally, normal external ear exam - Neck Neck exam: Present: normal inspection. Absent: tenderness - Respiratory Respiratory exam: Present: normal lung sounds bilaterally. Absent: respiratory distress, wheezes, rales, rhonchi - Cardiovascular Cardiovascular Exam: Present: regular rate, normal rhythm, normal heart sounds - GI/Abdominal GI/Abdominal exam: Present: soft. Absent: distended, tenderness - Extremities Exam Extremities exam: Present: normal inspection. Absent: pedal edema, joint swelling - Back Exam Back exam: Present: normal inspection - Neurological Exam Neurological exam: Present: alert, oriented X3 - Psychiatric Psychiatric exam: Present: normal affect - Skin Skin exam: Present: warm, dry, intact, normal color. Absent: rash ED Course Vital Signs 01/18/19 01/18/19 01/18/19 11:50 13:16 14:27 Temperature 98.0 F Pulse Rate 95 H 81 78 Respiratory 22 9 L 11 L Rate Blood Pressure 123/75 122/70 118/70 [Left] O2 Sat by Pulse 100 100 97 Oximetry - Reevaluation(s) Reevaluation #1: 01/18/19 14:32 At bedside to re-examine patient she's asleep easily aroused. C/o headache tylenol 650 mg ordered. Will trial oral fluids. No vomiting while in ER. 01/18/19 16:[address] Fauzia Franklin OB_GYN discuss all findings including thrombocyopenia PLT 113. Pt is currently tolerating oral fluids. Per Dr. Franklin pt can be discharged home with rx for Zofran and Phenergan suppository, crackers and oral hydration and follow up on Sunday. ED Medical Decision Making - Lab Data Result diagrams: 01/18/19 12:17 01/18/19 12:17 - Radiology Data Radiology results: report reviewed US IMPRESSION: 1. Single, living intrauterine with estimated sonographic age of 11 weeks, 2 day(s). 2. Previously noted subchorionic hemorrhage on prior ultrasound, 12/16/2018, is no longer appreciated. 3. 2.5 cm cystic mass within the right ovary is again noted, most likely a corpus luteal cyst. - Medical Decision Making 33 yo female 10 weeks c/o syncopal episode and 2 week complaint of hyperemesis. US shows live single intrauterine . Hydrated with 1 liter NS and oral fluids. 1 dose of Zofran relieved her nausea. Labs showed dehydration and thrombocyopenia (plt 113). 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 Findings and plan of care discussed with Dr. Malhotra he agrees. Critical Care Time: No Critical care attestation.: If time is entered above; I have spent that time in minutes in the direct care of this critically ill patient, excluding procedure time. ED Disposition Clinical Impression: Hyperemesis Normal IUP (intrauterine ) on ultrasound Qualifiers: Trimester: first trimester Qualified Code(s): Z34.91 - Encounter for supervision of normal , unspecified, first trimester Disposition: - TO HOME OR SELFCARE Is pt being admited?: No Does the pt Need Aspirin: No Condition: Stable Instructions: (ED), Hyperemesis Gravidarum (ED) Additional Instructions: Increase oral fluid intake, Eat crackers . Take medications as prescribed for na usea. If Phenergan suppistory is too sedating take only at bedtime. Take Zofran 4mg every 8 hours as needed for nausea. Follow up with OB-GY on Sunday. Dr. Franklin . Prescriptions: Promethazine [Phenergan] 25 mg PO Q6HR PRN #24 tab PRN Reason: Nausea Ondansetron [Zofran Odt] 4 mg PO Q8HR PRN #20 tab.rapdis PRN Reason: Nausea Referrals: PRIMARY CARE, [Primary Care Provider] - 3-5 Days Time of Disposition: 16:57
[2019-01-18 12:28] LABS: Hematocrit 36.7 % (30.3-42.9); Hemoglobin 11.7 gm/dl (10.1-14.3); Mean Corpuscular HGB Conc 32 % (30-34); Mean Corpuscular Volume 76 fl (79-97); Red Blood Count 4.85 M/mm3 (3.65-5.03); Red Cell Distribution Width 17.8 % (13.2-15.2)
[2019-01-18 12:34] LABS: Platelet Count 113 K/mm3 (140-440)
[2019-01-18 12:42] LABS: BUN/Creatinine Ratio 10; Blood Urea Nitrogen 6 mg/dL (7-17); Calcium 9.3 mg/dL (8.4-10.2); Hemolysis Index 112
[2019-01-18 12:51] LABS: Alanine Aminotransferase 16 units/L (7-56)
[2019-01-18] MEDS ORDERED: ACETAMINOPHEN 325 MG TAB PO ONE (14:31)
--- NOTE | 2019-01-18 14:51 | Ultrasound Report ---
ULTRASOUND OBSTETRIC INDICATION / CLINICAL INFORMATION: lower abdominal pain. Clinical Gestational Age (GA): 10 weeks 0 days TECHNIQUE: Transabdominal. Transvaginal not performed. COMPARISON: Prior exam, 12/16/2018 FINDINGS: GESTATIONAL SAC: Well-defined oval shape and intrauterine in location. YOLK SAC: No significant abnormality. EMBRYO/FETUS: No significant abnormality. - [place]-Rump Length = 4.49 cm = 11 weeks, 2 day(s). - Heart Rate, beats per minute (if present) = 163 ADNEXA: Hypoechoic 2.5 cm mass is noted within the right ovary. This was noted on the prior exam and is not significantly changed. Left ovary is unremarkable on today's exam. FREE FLUID: None. ADDITIONAL FINDINGS: Previously noted subchorionic hemorrhage on the prior ultrasound is no longer id entified. IMPRESSION: 1. Single, living intrauterine with estimated sonographic age of 11 weeks, 2 day(s). 2. Previously noted subchorionic hemorrhage on prior ultrasound, 12/16/2018, is no longer appreciated . 3. 2.5 cm cystic mass within the right ovary is again noted, most likely a corpus luteal cyst. Signer Name: Vanna Tsai MD Signed: 01/18/2019 2:47 PM Workstation Name: [id number]
[2019-01-18 15:51] LABS: INR 0.83 (0.87-1.13); Partial Thromboplastin Time 21.6 Sec. (24.2-36.6)
[2019-01-18 17:37] VITALS: BP 122/72
== END 2019-01-18 17:37 | disposition home or self-care (01) ==
LOC: ED 11:36
DX: O21.8 Other vomiting complicating pregnancy (principal); K21.9 Gastro-esophageal reflux disease without esophagitis; M19.90 Unspecified osteoarthritis, unspecified site; Z98.890 Other specified postprocedural states; Z87.891 Personal history of nicotine dependence; Z79.1 Long term (current) use of non-steroidal anti-inflammatories (NSAID); Z79.899 Other long term (current) drug therapy; Z88.2 Allergy status to sulfonamides; Z88.8 Allergy status to other drugs, medicaments and biological substances; Z3A.10 10 weeks gestation of pregnancy
CPT/HCPCS: 36415; 76801; 80053; 82140; 83690; 84702; 85027; 85379; 85610; 85730; 96361; 96374; 99284; J2405; J7030

== ENCOUNTER 2019-03-12 16:49 | Emergency (ER) | payer MEDICAID ==
[2019-03-12] MEDS ORDERED: ACETAMINOPHEN 325 MG TAB PO ONE (17:25)
[2019-03-12 17:26] VITALS: BP 131/91
--- NOTE | 2019-03-12 17:27 | Emergency Department Report ---
Chief Complaint: Abdominal Pain Stated Complaint: 18 WEEKS /PAIN IN PELVIS Time Seen by Provider: 03/12/19 17:26 - HPI History of Present Illness: 33 y/o fem , lmp nov 2018, follows with Dr Franklin p/w pelvic pain, anal pain, vaginal spotting yesterday labs ua ultrasound reassess Vital Signs 03/12/19 17:23 Temperature 97.9 F Pulse Rate 109 H Respiratory 18 Rate Blood Pressure 131/91 O2 Sat by Pulse 100 Oximetry - Exam Vital Signs: Vital Signs 03/12/19 17:23 Temperature 97.9 F Pulse Rate 109 H Respiratory 18 Rate Blood Pressure 131/91 O2 Sat by Pulse 100 Oximetry MSE screening note: Focused history and physical exam performed. Due to findings the following was ordered: ED Disposition for MSE Condition: Stable Instructions: Abdominal Pain (ED)
[2019-03-12 17:55] LABS: Basophils # (Auto) 0.1 K/mm3 (0.0-0.1); Basophils % (Auto) 0.5 % (0.0-1.8); Eosinophils # (Auto) 0.1 K/mm3 (0.0-0.4); Eosinophils % (Auto) 1.2 % (0.0-4.3); Hematocrit 34.6 % (30.3-42.9); Hemoglobin 11.7 gm/dl (10.1-14.3); Lymphocytes # (Auto) 2.6 K/mm3 (1.2-5.4); Lymphocytes % (Auto) 24.6 % (13.4-35.0); Mean Corpuscular HGB Conc 34 % (30-34); Mean Corpuscular Volume 75 fl (79-97); Monocytes # (Auto) 0.7 K/mm3 (0.0-0.8); Monocytes % (Auto) 6.9 % (0.0-7.3); Platelet Count 320 K/mm3 (140-440); Red Blood Count 4.58 M/mm3 (3.65-5.03); Red Cell Distribution Width 17.6 % (13.2-15.2)
[2019-03-12 18:06] LABS: INR 0.94 (0.87-1.13)
[2019-03-12 18:17] LABS: Alanine Aminotransferase 10 units/L (7-56); Albumin 3.5 g/dL (3.9-5); BUN/Creatinine Ratio 14; Blood Urea Nitrogen 7 mg/dL (7-17); Calcium 9.5 mg/dL (8.4-10.2); Hemolysis Index 0
--- NOTE | 2019-03-12 19:55 | Ultrasound Report ---
OBSTETRIC ULTRASOUND INDICATION: Maternal gestational hypertension COMPARISON: Ultrasound 01/18/2019 TECHNIQUE: Transabdominal imaging was performed. FINDINGS: Single viable intrauterine is identified. lie: Transverse. Heart rate: 146 bpm. bladder, diaphragm, heart, stomach, cord and its insertion, kidneys, spine, and included intrac ranial structures are unremarkable. measurements are as follows: Biparietal diameter 4.2 cm, 18 weeks 5 days Head circumference 15.7 cm, 18 weeks, 4 days Abdominal circumference 4.5 cm, 19 weeks 6 days Femur length 2.6 cm, 17 weeks, 5 days Amniotic fluid index is subjectively within normal limits. No placental abnormalities are seen. Cerv ix is closed measuring approximately 5 cm CONCLUSION: Single viable intrauterine currently in transverse position. The cervix is closed measurin g approximately 5 cm. Signer Name: John Simmons MD Signed: 03/12/2019 7:50 PM Workstation Name: [id number]
[2019-03-12 21:59] LABS: Bacteria,Urine 1+ /HPF (Negative); Bilirubin,Urine NEG (Negative); Blood,Urine NEG (Negative); Color,Urine Yellow (Yellow); Mucus,Urine 3+ /HPF; Urobilinogen,Urine < 2.0 mg/dL (<2.0)
--- NOTE | 2019-03-12 22:21 | Emergency Department Report ---
ED Female HPI - General Chief complaint: Abdominal Pain Stated complaint: 18 WEEKS /PAIN IN PELVIS Time Seen by Provider: 03/12/19 17:26 Source: patient Mode of arrival: Ambulatory Limitations: No Limitations - History of Present Illness Initial comments: This is a 33-year-old -[place] female who presents to the emergency room with pelvic and vaginal pain for one week. Patient states vaginal pain is worse with movement and sitting. She denies vaginal discharge. She reports pain as sharp achy intensity with movement. Patient states her PROMOTIONS ASSISTANT is Dr. Marty Franklin. She saw Dr. Marty Franklin last Sunday and pending labs and STD cultures. She denies vaginal discharge, urinary frequency, urgency, dysuria, or back pain. MD Complaint: pelvic pain Onset/Timin -: week(s) Location: suprapubic Radiation: non-radiating Severity: severe Severity scale (0 -10): 10 Quality: sharp, aching Consistency: intermittent Improves with: none Worsens with: movement Are you Now?: Yes Last Menstrual Period: 10/21/18 EDC: 07/28/19 Associated Symptoms: abdominal pain (pelvic pain). denies: vaginal discharge, nausea/vomiting, fever/chills, headaches, loss of appetite, dysuria, hematuria, rash, seizure, shortness of breath, syncope, weakness - Related Data Sexually active: Yes : 5 Para: 3 A: 1 (miscarriage) Home Medications Medication Instructions Recorded Confirmed Last Taken Ibuprofen [Motrin 800 MG tab] 800 mg PO Q8H PRN 06/19/18 07/11/18 Unknown Naproxen [Naprosyn] 375 mg PO BID PRN 06/19/18 07/11/18 Unknown Previous Rx's Medication Instructions Recorded Last Taken Type Cyclobenzaprine [Flexeril] 10 mg PO QHS PRN #10 tablet 09/04/18 Unknown Rx Ibuprofen [Motrin] 600 mg PO Q8H PRN #20 tablet 09/04/18 Unknown Rx HYDROcodone/APAP 5-325 [Kirby 1 each PO Q6HR PRN #10 tablet 12/17/18 Unknown Rx 5/325] Ondansetron [Zofran Odt] 4 mg PO Q8HR PRN #20 tab.rapdis 01/18/19 Unknown Rx Promethazine [Phenergan] 25 mg PO Q6HR PRN #24 tab 01/18/19 Unknown Rx metroNIDAZOLE [metroNIDAZOLE 70 gm VG BID 10 Days #1 gel.w.appl 03/12/19 Unknown Rx VAGINAL 0.75% gel] Allergies Allergy/AdvReac Type Severity Reaction Status Date / Time butorphanol tartrate Allergy Swelling Verified 09/04/18 13:43 [From Stadol] Sulfa (Sulfonamide Allergy Itching Verified 09/04/18 13:43 Antibiotics) ED Review of Systems ROS: Stated complaint: 18 WEEKS /PAIN IN PELVIS Other details as noted in HPI Constitutional: denies: chills, fever Respiratory: denies: cough, shortness of breath, wheezing Cardiovascular: denies: chest pain, palpitations Gastrointestinal: abdominal pain (pelvic pain). denies: nausea, diarrhea Genitourinary: other (vaginal pain). denies: urgency, dysuria, discharge Musculoskeletal: denies: back pain, joint swelling, arthralgia Skin: denies: rash, lesions Neurological: denies: headache, weakness, paresthesias Psychiatric: denies: anxiety, depression ED Past Medical Hx - Past Medical History Previous Medical History?: Yes Hx Diabetes: No Hx GERD: Yes Hx Renal Disease: No Hx Arthritis: Yes (Knee, back) - Surgical History Past Surgical History?: Yes Additional Surgical History: left knee surgeryRight ovarian cystectomy - Social History Smoking Status: Never Smoker Substance Use Type: None - Medications Home Medications: Home Medications Medication Instructions Recorded Confirmed Last Taken Type Ibuprofen [Motrin 800 MG tab] 800 mg PO Q8H PRN 06/19/18 07/11/18 Unknown Histor y Naproxen [Naprosyn] 375 mg PO BID PRN 06/19/18 07/11/18 Unknown History Cyclobenzaprine [Flexeril] 10 mg PO QHS PRN #10 tablet 09/04/18 Unknown Rx Ibuprofen [Motrin] 600 mg PO Q8H PRN #20 tablet 09/04/18 Unknown Rx HYDROcodone/APAP 5-325 [[place] 1 each PO Q6HR PRN #10 tablet 12/17/18 Unknown Rx 5/325] Ondansetron [Zofran Odt] 4 mg PO Q8HR PRN #20 tab.rapdis 01/18/19 Unknown Rx Promethazine [Phenergan] 25 mg PO Q6HR PRN #24 tab 01/18/19 Unknown Rx metroNIDAZOLE [metroNIDAZOLE 70 gm VG BID 10 Days #1 gel.w.appl 03/12/19 Unknown Rx VAGINAL 0.75% gel] ED Physical Exam - General Limitations: No Limitations General appearance: alert, in no apparent distress, obese - Respiratory Respiratory exam: Present: normal lung sounds bilaterally. Absent: respiratory distress - Cardiovascular Cardiovascular Exam: Present: regular rate, normal rhythm. Absent: systolic murmur, diastolic murmur, rubs, gallop - GI/Abdominal GI/Abdominal exam: Present: soft, tenderness (suprapubic tenderness), normal bowel sounds. Absent: distended, guarding, rebound, rigid, organomegaly, mass, bruit, pulsatile mass, hernia - External exam: Present: normal external exam - Extremities Exam Extremities exam: Present: normal inspection - Back Exam Back exam: Absent: CVA tenderness (R), CVA tenderness (L) - Neurological Exam Neurological exam: Present: alert, oriented X3, normal gait - Psychiatric Psychiatric exam: Present: normal affect, normal mood - Skin Skin exam: Present: warm, dry, intact, normal color. Absent: rash ED Course Vital Signs 03/12/19 03/12/19 17:23 17:32 Temperature 97.9 F Pulse Rate 109 H Respiratory 18 18 Rate Blood Pressure 131/91 O2 Sat by Pulse 100 Oximetry ED Medical Decision Making - Lab Data Result diagrams: 03/12/19 17:32 03/12/19 17:32 Lab Results 03/12/19 03/12/19 03/12/19 Range/Units 17:32 17:32 17:32 WBC 10.5 (4.5-11.0) K/mm3 RBC 4.58 (3.65-5.03) M/mm3 Hgb 11.7 (10.1-14.3) gm/dl Hct 34.6 (30.3-42.9) % MCV 75 L (79-97) fl MCH 26 L (28-32) pg MCHC 34 (30-34) % RDW 17.6 H (13.2-15.2) % Plt Count 320 (140-440) K/mm3 Lymph % (Auto) 24.6 (13.4-35.0) % [place] % (Auto) 6.9 (0.0-7.3) % Eos % (Auto) 1.2 (0.0-4.3) % Baso % (Auto) 0.5 (0.0-1.8) % Lymph # 2.6 (1.2-5.4) K/mm3 [place] # 0.7 (0.0-0.8) K/mm3 Eos # 0.1 (0.0-0.4) K/mm3 Baso # 0.1 (0.0-0.1) K/mm3 Seg Neutrophils % 66.8 (40.0-70.0) % Seg Neutrophils # 7.0 (1.8-7.7) K/mm3 PT 12.7 (12.2-14.9) Sec. INR 0.94 (0.87-1.13) Sodium 135 L (137-145) mmol/L Potassium 4.0 (3.6-5.0) mmol/L Chloride 100.6 (98-107) mmol/L Carbon Dioxide 19 L (22-30) mmol/L Anion Gap 19 mmol/L BUN 7 (7-17) mg/dL Creatinine 0.5 L (0.7-1.2) mg/dL Estimated GFR > 60 ml/min BUN/Creatinine Ratio 14 % Glucose 90 (65-100) mg/dL Calcium 9.5 (8.4-10.2) mg/dL Magnesium (1.7-2.3) mg/dL Total Bilirubin 0.20 (0.1-1.2) mg/dL AST 11 (5-40) units/L ALT 10 (7-56) units/L Alkaline Phosphatase 67 (35-129) units/L Total Creatine Kinase (30-135) units/L Total Protein 7.8 (6.3-8.2) g/dL Albumin 3.5 L (3.9-5) g/dL Albumin/Globulin Ratio 0.8 % HCG, Quant (0-4) mIU/mL Urine Color (Yellow) Urine Turbidity (Clear) Urine pH (5.0-7.0) Ur Specific [place] (1.003-1.030) Urine Protein (Negative) mg/dL Urine Glucose (UA) (Negative) mg/dL Urine Ketones (Negative) mg/dL Urine Blood (Negative) Urine Nitrite (Negative) Urine Bilirubin (Negative) Urine Urobilinogen (<2.0) mg/dL Ur Leukocyte Esterase (Negative) Urine WBC (Auto) (0.0-6.0) /HPF Urine RBC (Auto) (0.0-6.0) /HPF U Epithel Cells (Auto) (0-13.0) /HPF Urine Bacteria (Auto) (Negative) /HPF Urine Mucus /HPF Blood Type Antibody Screen 03/12/19 03/12/19 03/12/19 Range/Units 17:32 17:32 17:38 WBC (4.5-11.0) K/mm3 RBC (3.65-5.03) M/mm3 Hgb (10.1-14.3) gm/dl Hct (30.3-42.9) % MCV (79-97) fl MCH (28-32) pg MCHC (30-34) % RDW (13.2-15.2) % Plt Count (140-440) K/mm3 Lymph % (Auto) (13.4-35.0) % [place] % (Auto) (0.0-7.3) % Eos % (Auto) (0.0-4.3) % Baso % (Auto) (0.0-1.8) % Lymph # (1.2-5.4) K/mm3 [place] # (0.0-0.8) K/mm3 Eos # (0.0-0.4) K/mm3 Baso # (0.0-0.1) K/mm3 Seg Neutrophils % (40.0-70.0) % Seg Neutrophils # (1.8-7.7) K/mm3 PT (12.2-14.9) Sec. INR (0.87-1.13) Sodium (137-145) mmol/L Potassium (3.6-5.0) mmol/L Chloride (98-107) mmol/L Carbon Dioxide (22-30) mmol/L Anion Gap mmol/L BUN (7-17) mg/dL Creatinine (0.7-1.2) mg/dL Estimated GFR ml/min BUN/Creatinine Ratio % Glucose (65-100) mg/dL Calcium (8.4-10.2) mg/dL Magnesium 1.80 (1.7-2.3) mg/dL Total Bilirubin (0.1-1.2) mg/dL AST (5-40) units/L ALT (7-56) units/L Alkaline Phosphatase (35-129) units/L Total Creatine Kinase 43 (30-135) units/L Total Protein (6.3-8.2) g/dL Albumin (3.9-5) g/dL Albumin/Globulin Ratio % HCG, Quant 7294 H (0-4) mIU/mL Urine Color (Yellow) Urine Turbidity (Clear) Urine pH (5.0-7.0) Ur Specific [place] (1.003-1.030) Urine Protein (Negative) mg/dL Urine Glucose (UA) (Negative) mg/dL Urine Ketones (Negative) mg/dL Urine Blood (Negative) Urine Nitrite (Negative) Urine Bilirubin (Negative) Urine Urobilinogen (<2.0) mg/dL Ur Leukocyte Esterase (Negative) Urine WBC (Auto) (0.0-6.0) /HPF Urine RBC (Auto) (0.0-6.0) /HPF U Epithel Cells (Auto) (0-13.0) /HPF Urine Bacteria (Auto) (Negative) /HPF Urine Mucus /HPF Blood Type O POSITIVE Antibody Screen Negative 03/12/19 Range/Units 21:40 WBC (4.5-11.0) K/mm3 RBC (3.65-5.03) M/mm3 Hgb (10.1-14.3) gm/dl Hct (30.3-42.9) % MCV (79-97) fl MCH (28-32) pg MCHC (30-34) % RDW (13.2-15.2) % Plt Count (140-440) K/mm3 Lymph % (Auto) (13.4-35.0) % [place] % (Auto) (0.0-7.3) % Eos % (Auto) (0.0-4.3) % Baso % (Auto) (0.0-1.8) % Lymph # (1.2-5.4) K/mm3 [place] # (0.0-0.8) K/mm3 Eos # (0.0-0.4) K/mm3 Baso # (0.0-0.1) K/mm3 Seg Neutrophils % (40.0-70.0) % Seg Neutrophils # (1.8-7.7) K/mm3 PT (12.2-14.9) Sec. INR (0.87-1.13) Sodium (137-145) mmol/L Potassium (3.6-5.0) mmol/L Chloride (98-107) mmol/L Carbon Dioxide (22-30) mmol/L Anion Gap mmol/L BUN (7-17) mg/dL Creatinine (0.7-1.2) mg/dL Estimated GFR ml/min BUN/Creatinine Ratio % Glucose (65-100) mg/dL Calcium (8.4-10.2) mg/dL Magnesium (1.7-2.3) mg/dL Total Bilirubin (0.1-1.2) mg/dL AST (5-40) units/L ALT (7-56) units/L Alkaline Phosphatase (35-129) units/L Total Creatine Kinase (30-135) units/L Total Protein (6.3-8.2) g/dL Albumin (3.9-5) g/dL Albumin/Globulin Ratio % HCG, Quant (0-4) mIU/mL Urine Color Yellow (Yellow) Urine Turbidity Slightly-cloudy (Clear) Urine pH 6.0 (5.0-7.0) Ur Specific [place] 1.032 H (1.003-1.030) Urine Protein 30 mg/dl (Negative) mg/dL Urine Glucose (UA) Neg (Negative) mg/dL Urine Ketones 20 (Negative) mg/dL Urine Blood Neg (Negative) Urine Nitrite Neg (Negative) Urine Bilirubin Neg (Negative) Urine Urobilinogen < 2.0 (<2.0) mg/dL Ur Leukocyte Esterase Neg (Negative) Urine WBC (Auto) 2.0 (0.0-6.0) /HPF Urine RBC (Auto) 5.0 (0.0-6.0) /HPF U Epithel Cells (Auto) 19.0 H (0-13.0) /HPF Urine Bacteria (Auto) 1+ (Negative) /HPF Urine Mucus 3+ /HPF Blood Type Antibody Screen - Radiology Data Radiology results: report reviewed OBSTETRIC ULTRASOUND INDICATION: Maternal gestational hypertension COMPARISON: Ultrasound 01/18/2019 TECHNIQUE: Transabdominal imaging was performed. FINDINGS: Single viable intrauterine is identified. lie: Transverse. Heart rate: 146 bpm. bladder, diaphragm, heart, stomach, cord and its insertion, kidneys, spine, and included intracranial structures are unremarkable. measurements are as follows: Biparietal diameter 4.2 cm, 18 weeks 5 days Head circumference 15.7 cm, 18 weeks, 4 days Abdominal circumference 4.5 cm, 19 weeks 6 days Femur length 2.6 cm, 17 weeks, 5 days Amniotic fluid index is subjectively within normal limits. No placental abnormalities are seen. Cervix is closed measuring approximately 5 cm CONCLUSION: Single viable intrauterine currently in transverse position. The cervix is closed measuring approximately 5 cm. - Medical Decision Making This is a 33-year-old female Presents to the ER with pelvic and vaginal pain for one week. Patient states she is 18 weeks [address] followed by Dr. Marty Franklin PROMOTIONS ASSISTANT. Vitals are stable. Patient given analgesics. Labs and OB ultrasound was obtained. All labs are unremarkable. Ultrasound findings of the following: Single viable intrauterine currently in transverse pos ition. The cervix is closed measuring approximately 5 cm. A pelvic exam was attempted and patient was unable to tolerate. Patient empirically treated with Rocephin 250 mg IM and azithromycin 1 gram by mouth for suspected PID. Start MetroGel. Follow up with Dr. Franklin PROMOTIONS ASSISTANT in 24-48 hours. Patient discharged home stable. Critical care attestation.: If time is entered above; I have spent that time in minutes in the direct care of this critically ill patient, excluding procedure time. ED Disposition Clinical Impression: STD exposure Pelvic pain affecting Qualifiers: Trimester: second trimester Qualified Code(s): O26.892 - Other specified related conditions, second trimester; R10.2 - Pelvic and perineal pain Disposition: TO HOME OR SELFCARE Is pt being admited?: No Condition: Stable Instructions: Abdominal Pain (ED), Safe Sex (ED), Sexually Transmitted Diseases (ED) Additional Instructions: Follow-up with your PROMOTIONS ASSISTANT Dr. Franklin for your lab results from last Sunday to rule out active STD. Start taking antibiotics prescribed for the full course. Take Tylenol for pain every 6 hours as needed. Return to the emergency room if worsening symptoms such as vaginal bleeding and uncontrollable pain. Prescriptions: metroNIDAZOLE [metroNIDAZOLE VAGINAL 0.75% gel] 70 gm VG BID 10 Days #1 gel.w.appl Referrals: MARTY FRANKLIN MD [Staff Physician] - 3-5 Days [facility] [Provider Group] - 3-5 Days [facility] [Provider Group] - 3-5 Days Forms: Work/School Release Form(ED) Time of Disposition: 22:39
[2019-03-12] MEDS ORDERED: AZITHROMYCIN 250 MG TAB PO ONE (22:36)
[2019-03-12] MEDS ORDERED: LIDOCAINE-MPF (1%) 10 MG/1 ML VIAL 5 ML INFILTRATI ONE (22:36)
[2019-03-12] MEDS ORDERED: ACETAMINOPHEN W/CODEINE 300-30 MG TAB PO ONE (22:37)
== END 2019-03-12 23:50 | disposition home or self-care (01) ==
LOC: ED 16:49
DX: O26.892 Other specified pregnancy related conditions, second trimester (principal); R10.2 Pelvic and perineal pain; M13.869 Other specified arthritis, unspecified knee; O99.612 Diseases of the digestive system complicating pregnancy, second trimester; K92.89 Other specified diseases of the digestive system; O98.312 Other infections with a predominantly sexual mode of transmission complicating pregnancy, second trimester; Z3A.18 18 weeks gestation of pregnancy; Z88.2 Allergy status to sulfonamides; Z88.8 Allergy status to other drugs, medicaments and biological substances; Z98.890 Other specified postprocedural states; Z79.899 Other long term (current) drug therapy
CPT/HCPCS: 36415; 76805; 80053; 81001; 82550; 83735; 84702; 85025; 85610; 86850; 86900; 86901; 96372; 99284; J0696

== ENCOUNTER 2019-04-12 08:06 | Outpatient (CLI) | payer MEDICAID ==
[2019-04-12 09:05] VITALS: BP 114/61
== END 2019-04-12 11:44 | disposition left against medical advice (07) ==
LOC: TRG 08:06
PROVIDERS: ATTEND Obstetrics & Gynecology
DX: O26.892 Other specified pregnancy related conditions, second trimester (principal); R10.9 Unspecified abdominal pain; R10.2 Pelvic and perineal pain; M54.5 Low back pain; Z3A.22 22 weeks gestation of pregnancy

== ENCOUNTER 2019-05-29 18:10 | Outpatient (CLI) | payer MEDICAID ==
[2019-05-29] MEDS ORDERED: LACTATED RINGERS 500 ML IV ONE (21:00)
[2019-05-29] MEDS ORDERED: ONDANSETRON 4 MG/2 ML INJ IV ONE (21:00)
[2019-05-29] MEDS ORDERED: ACETAMINOPHEN 500 MG TAB PO ONE (21:38)
[2019-05-29] MEDS ORDERED: METOCLOPRAMIDE 10 MG/2 ML INJ IV ONE (22:37)
[2019-05-29 22:59] LABS: Bilirubin,Urine NEG (Negative); Blood,Urine NEG (Negative); Color,Urine Yellow (Yellow); Mucus,Urine 2+ /HPF; Protein,Urine <15 mg/dL mg/dL (Negative)
[2019-05-29 23:49] VITALS: BP 124/75
== END 2019-05-29 23:30 | disposition left against medical advice (07) ==
LOC: TRG 18:10 → APU 18:12 → TRG 23:30 → APU 05-30 04:10
PROVIDERS: ATTEND Obstetrics & Gynecology
DX: O21.2 Late vomiting of pregnancy (principal); O26.893 Other specified pregnancy related conditions, third trimester; R10.31 Right lower quadrant pain; O47.02 False labor before 37 completed weeks of gestation, second trimester; Z3A.29 29 weeks gestation of pregnancy
CPT/HCPCS: 81001; 96361; 96374; 96375; J2405; J2765; J7120

== ENCOUNTER 2019-07-14 13:26 | Outpatient (CLI) | payer MEDICAID ==
[2019-07-14 13:52] VITALS: BP 118/66
[2019-07-14] MEDS ORDERED: LACTATED RINGERS 500 ML IV ONE (14:49)
== END 2019-07-14 16:52 | disposition home or self-care (01) ==
LOC: TRG 13:26 → APU 13:27 → TRG 16:52
PROVIDERS: ATTEND Obstetrics & Gynecology
DX: O42.913 Preterm premature rupture of membranes, unspecified as to length of time between rupture and onset of labor, third trimester (principal); Z3A.35 35 weeks gestation of pregnancy
CPT/HCPCS: 59025

== ENCOUNTER 2019-07-19 19:50 | Inpatient (IN) | payer MEDICAID ==
[2019-07-19] MEDS ORDERED: AMPICILLIN/NS 2 GM/100 ML 2 GM/100 ML BAG IV ONE (20:36)
[2019-07-19] MEDS ORDERED: ePHEDrine SULFATE 50 MG/1 ML INJ IV PRN (20:36)
[2019-07-19] MEDS ORDERED: LIDOCAINE (2%) 20 MG/1 ML VIAL 20 ML MDV INFILTRATI ONE (20:36)
[2019-07-19] MEDS ORDERED: TERBUTALINE 1 MG/1 ML INJ SUB-Q PRN (20:36)
[2019-07-19 20:43] LABS: Basophils % (Auto) 0.4 % (0.0-1.8); Eosinophils # (Auto) 0.1 K/mm3 (0.0-0.4); Eosinophils % (Auto) 0.8 % (0.0-4.3); Hemoglobin 9.9 gm/dl (10.1-14.3); Lymphocytes # (Auto) 1.9 K/mm3 (1.2-5.4); Lymphocytes % (Auto) 20.8 % (13.4-35.0); Mean Corpuscular HGB Conc 32 % (30-34); Mean Corpuscular Volume 72 fl (79-97); Monocytes # (Auto) 0.9 K/mm3 (0.0-0.8); Monocytes % (Auto) 9.5 % (0.0-7.3); Platelet Count 329 K/mm3 (140-440); Red Blood Count 4.29 M/mm3 (3.65-5.03)
--- NOTE | 2019-07-19 20:59 | History and Physical Report ---
History of Present Illness Date of examination: 07/19/19 Date of admission: 07/19/2019 Chief complaint: Leaking of fluid from vagina History of present illness: 33 year old presents to L&D complaining of leaking of clear fluid from vagina since 5:58 PM today. Patient denies vaginal bleeding. Patient reports active movement. Patient reports contractions. Patient received care at [facility] and records are not available. Was able to access records via computer but not able to print them. LMP 10/24/18. EDC 08/12/2019 (based on 9 week US). significant for the following: chronic hypertension (was managed on L abetalol 100 mg po BID but recently stopped the medication), class 3 obesity, asthma, anemia, depression (not on medications for), history of genital herpes (on Valtrex suppression), noncompliant with visits. labs are as follows: O+, antibody screen negative, rubella immune, hepatitis B surface antigen negative, HIV negative, RPR nonreactive, gonorrhea negative, chlamydia negative, trichomonas negative, GBS unknown, quad screen negative, early 1 hour sugar test 113 (repeat 126), pap smear negative. Prior to patient had hypertension and prediabetes. Past History Past Medical History: asthma, hypertension, other (morbid obesity, prediabetes, anemia, depression) Past Surgical History: other (knee surgery, laparoscopy) [facility] History: herpes (patient denies lesions or prodromal symptoms). denies: abnormal PAP smear, chlamydia, gonorrhea, hepatitis B, hepatitis C, HIV, syphilis, trichomonas Family/Genetic History: diabetes, hypertension Social history: , lives with family, full code. denies: smoking, alcohol abuse, prescription drug abuse, IV drug use - Obstetrical History Expected Date of Delivery: 08/12/19 Actual Gestation: 36 Week(s) 4 Day(s) : 5 Para: 3 Hx # Term Pregnancies: 3 Number of Pregnancies: 0 Spontaneous Abortions: 1 Induced : 0 Number of Living Children: 3 Medications and Allergies Allergies Allergy/AdvReac Type Severity Reaction Status Date / Time butorphanol tartrate Allergy Swelling Verified 07/19/19 21:39 [From Stadol] Sulfa (Sulfonamide Allergy Itching Verified 07/19/19 21:39 Antibiotics) Home Medications Medication Instructions Recorded Confirmed Last Taken Type Acetaminophen [Tylenol] 325 mg PO PRN 07/19/19 2 Days Ago History ~07/17/19 valACYclovir [Valtrex] 500 mg PO DAILY 07/19/19 07/19/19 2 Days Ago History ~07/17/19 1 tablet Active Meds: Active Medications Betamethasone Acet/Betameth SodPhos (Celestone Soluspan) 12 mg IM Q24HR CYNTHIA Ephedrine Sulfate (Ephedrine Sulfate) 10 mg IV Q2M PRN PRN Reason: Hypotension Fentanyl (Sublimaze) 100 mcg IV Q2H PRN PRN Reason: Pain,Severe (7-10) LABOR PAIN Oxytocin/Sodium Chloride (Pitocin/Ns 20 Unit/1000ml Drip) 20 units in 1,000 mls @ 125 mls/hr IV DIRECT CYNTHIA Lactated Ringer's (Lactated Ringers) 1,000 mls @ 125 mls/hr IV DIRECT CYNTHIA Ampicillin Sodium (Ampicillin/Ns 2 Gm/100 Ml) 2 gm in 100 mls @ 100 mls/hr IV ONCE ONE; Protocol Stop: 07/19/19 21:35 Ampicillin Sodium (Ampicillin/Ns 1 Gm/50 Ml) 1 gm in 50 mls @ 100 mls/hr IV Q4HR CYNTHIA; Protocol Lidocaine (Xylocaine 2%) 20 ml INFILTRATI ONCE ONE Stop: 07/19/19 20:37 Ondansetron HCl (Zofran) 4 mg IV Q8H PRN PRN Reason: Nausea And Vomiting Terbutaline Sulfate (Brethine) 0.25 mg SUB-Q ONCE PRN PRN Reason: Hyperstimulation/Hypertonicity Valacyclovir HCl (Valtrex) 500 mg PO BID COUNT INCLUDES THE [facility] Review of Systems All systems: negative (leaking of clear fluid from vagina, contractions) - Vital Signs Vital signs: Vital Signs Temp 98.9 F 07/19/19 20:00 Temp Pulse Resp BP Pulse Ox 98.9 F 100 H 135/91 07/19/19 20:00 07/19/19 20:05 07/19/19 20:05 - Physical Exam Abdomen: Positive: soft. Negative: distention, tenderness, guarding, rigidity Genitourinary (Female): Positive: normal external genitalia, normal perenium. Negative: perineal/vulvar lesions (no lesions noted on careful exam with bright light upon admission) Vagina: Positive: normal moisture, other (clear fluid) Uterus: Positive: enlarged. Negative: tender Anus/Rectum: Positive: normal perianal skin Extremities: Positive: normal. Negative: tenderness, edema - Obstetrical FHR: category 1 Cervical Dilatation: 2.5 Cervical Effacement Percentage: 60 station: -3 Uterine Contraction Pattern: Irregular Uterine Contraction Intensity: Mild Results Result Diagrams: 07/19/19 20:20 Abnormal lab results 07/19/19 Range/Units 20:20 [place] % (Auto) 9.5 H (0.0-7.3) % [place] # 0.9 H (0.0-0.8) K/mm3 All other labs normal. Assessment and Plan A: at 36 weeks, 4 days gestation. Spontaneous rupture of membranes. Labor at late gestation. GBS unknown. HSV 2 positive serology (on Valtrex suppression). Chronic hypertension. Class 3 obesity. P: Admit. EFM. Preeclamptic labs. GBS prophylaxis. Celestone. BP monitoring. Augmentation of labor. Patient consented to augmentation of labor with Pitocin.
[2019-07-19] MEDS ORDERED: OXYTOCIN 20 UNIT/1000ML DRIP 20 UNITS/1,000 ML BAG IV SCH (21:00)
[2019-07-19] MEDS: BETAMET ACET/BETAMET NA PH 6 MG/ML INJ 5 ML MDV IM SCH (21:15)
[2019-07-19] MEDS: LACTATED RINGERS 1,000 ML IV SCH (21:17)
[2019-07-19] MEDS: OXYTOCIN DRIP 30 UNITS/500 ML BAG IV SCH (22:52)
[2019-07-19 23:16] LABS: Alanine Aminotransferase 7 units/L (7-56); Albumin 3.2 g/dL (3.9-5); BUN/Creatinine Ratio 16; Blood Urea Nitrogen 8 mg/dL (7-17); Calcium 9.1 mg/dL (8.4-10.2); Hemolysis Index 2; Uric Acid 4.3 mg/dL (3.5-7.6)
[2019-07-20] MEDS: AMPICILLIN/NS 1 GM/50 ML 1 GM/50 ML BAG IV SCH ×7 (00:46→22:15)
[2019-07-20] MEDS: ONDANSETRON 4 MG/2 ML INJ IV PRN ×2 (05:55→09:25)
[2019-07-20] MEDS: fentaNYL 100 MCG/2 ML INJ IV PRN ×2 (05:56→09:25)
[2019-07-20] MEDS ORDERED: NalbUPHINE 10 MG/1 ML INJ IV PRN (09:31)
[2019-07-20] MEDS ORDERED: NALOXONE 2 MG/2 ML INJ IV PRN (09:31)
--- NOTE | 2019-07-20 09:35 | Anesthesia Consultation ---
Anesthesia Consult and Med Hx Date of service: 07/20/19 - Airway Anesthetic Teeth Evaluation: Good ROM Head & Neck: Adequate Mental/Hyoid Distance: Adequate Mallampati Class: Class III Intubation Access Assessment: Possibly Difficult - Pulmonary Exam CTA: Yes - Cardiac Exam Cardiac Exam: RRR - Pre-Operative Health Status ASA Pre-Surgery Classification: ASA3 Proposed Anesthetic Plan: Epidural - Pulmonary Hx Smoking: Yes Hx Asthma: Yes (no problems since childhood) Hx Sleep Apnea: No - Cardiovascular System Hx Hypertension: Yes - Central Nervous System Hx Seizures: No Hx Psychiatric Problems: Yes (depression) - Gastrointestinal Hx Gastroesophageal Reflux Disease: No - Endocrine Hx Renal Disease: No Hx End Stage Renal Disease: No Hx Insulin Dependent Diabetes: No Hx Non-Insulin Dependent Diabetes: No (prediabetic) Hx Hypothyroidism: No Hx Hyperthyroidism: No - Hematic Hx Anemia: Yes Hx Sickle Cell Disease: No - Other Systems Hx Alcohol Use: Yes (Occas) Hx Cancer: No Hx Obesity: Yes
[2019-07-20] MEDS ORDERED: DEXMEDETOMIDINE 200 MCG/2 ML VIAL IV ONE (09:37)
[2019-07-20] MEDS ORDERED: FAMOTIDINE 20 MG/2 ML INJ IV SCH (10:00)
--- NOTE | 2019-07-20 10:16 | Progress Note ---
Labor Epidural - Labor Epidural Start Time: 09:50 Stop Time: 10:01 Performed by:: NATALIYA PEREIRA Procedure: Patient is requesting a laboring epidural for laboring pain. Patient IDed, H&P reviewed, all questions and concerns were answered, and consent was signed. Timeout was performed at bedside. Patient in sitting position. Sterile prep and drape was performed. [3] ml of 1% lidocaine skin wheal at L[3]- L [4]. 18- gauge Touhy epidural needle was advanced to loss of resistance with air technique. Negative CSF negative blood. Epidural catheter advanced to [15] centimeters. [negative] Aspiration [negative] test dose. Sterile dressing applied. Patient tolerated procedure.
[2019-07-20] MEDS: fentaNYL-BUPIV 2 MCG/ML-0.125% 200 MCG/100 ML BAG EPIDURAL SCH (11:52)
--- NOTE | 2019-07-20 13:33 | Event Note ---
Date: 07/20/19 SVE: no cervical change. Increase Pitocin per protocol. Category 1 heart rate tracing. Irregular contractions.
[2019-07-20] MEDS: LACTATED RINGERS 1,000 ML IV SCH (14:41)
[2019-07-20] MEDS ORDERED: ACETAMINOPHEN 325 MG TAB PO ONE (16:23)
--- NOTE | 2019-07-20 16:37 | Event Note ---
Date: 07/20/19 Patient repositioned. SVE /-2. Category 1 heart rate tracing.
[2019-07-20] MEDS: diphenhydrAMINE 50 MG/ML VIAL IV PRN ×2 (16:55→21:05)
--- NOTE | 2019-07-20 17:33 | Event Note ---
Date: 07/20/19 Patient started feeling "jittery" and started having jerking of upper extremities bilaterally; she also complained of numbness in both hands, short ness of breath, sensation of tightness in her jaw bilaterally, and headache. Stat blood sugar drawn with result of 64. D5LR started at 125 cc/hour. Sip of maritza stevan given with Tylenol po. Oxygen sat is 100 % on RA. BPs and pulse in normal range. Temp. 97.9. Stat CMP drawn and sent to lab. Anesthesia called to evaluate patient. Dr. Cody called to evaluate patient. Epidural turned off.
[2019-07-20] MEDS: valACYclovir 500 MG TAB PO SCH ×2 (17:37→22:39)
[2019-07-20 17:56] LABS: Alanine Aminotransferase 12 units/L (7-56); Albumin 3.2 g/dL (3.9-5); BUN/Creatinine Ratio 10; Blood Urea Nitrogen 6 mg/dL (7-17); Calcium 9.3 mg/dL (8.4-10.2); Hemolysis Index 3
[2019-07-20] MEDS ORDERED: D5W/LACTATED RINGERS 1,000 ML IV SCH (18:00)
[2019-07-20] MEDS: BETAMET ACET/BETAMET NA PH 6 MG/ML INJ 5 ML MDV IM SCH (22:21)
[2019-07-21] MEDS: fentaNYL-BUPIV 2 MCG/ML-0.125% 200 MCG/100 ML BAG EPIDURAL SCH (00:13)
[2019-07-21] MEDS: OXYTOCIN DRIP 30 UNITS/500 ML BAG IV SCH (02:11)
[2019-07-21] MEDS: AMPICILLIN/NS 1 GM/50 ML 1 GM/50 ML BAG IV SCH (02:25)
--- NOTE | 2019-07-21 02:26 | Event Note ---
Date: 07/21/19 IUPC placed to better trace contractions. SVE 5/90/-1. Category 1 heart rate tracing. MVUs 125. Pitocin increased per protocol. Fluid remains clear. Patient positioned in squatting position. Patient is afebrile and vital signs are stable. Patient is receiving Ampicillin for prophylaxis due to GBS unknown and late gestation. Patient has received full course of steroids. Consulted with Dr. Cody re: patient's slow progress in labor, prolonged rupture of membranes, position (OP), and interventions taken. Dr. Cody states to continue augmentation of labor. No new orders received from Dr. Cody.
[2019-07-21] MEDS ORDERED: BUPIVACAINE/PF (0.25%) 2.5 MG/ML 10 ML VIAL INFILTRATI ONE (04:19)
--- NOTE | 2019-07-21 06:45 | Procedure Note ---
OB Delivery Note - Delivery Date of Delivery: 07/21/19 Surgeon: KALIN LIRA Estimated blood loss: 200cc - Vaginal Delivery presentation: vertex Delivery position: OA Intrapartum events: PROM->1hr before delivery Delivery induction: none Delivery augmentation: pitocin Delivery monitor: external FHT, external uterine, internal FHT, internal uterine Route of delivery: Delivery placenta: spontaneous Delivery cord: 3 umbilical vessels Episiotomy: none Delivery laceration: none Anesthesia: epidural Delivery comments: Spontaneous vaginal delivery at 05:59 of liveborn male infant weighing 5 lb. 14.6 oz. over intact perineum with apgars of 8/9. Epidural anesthesia. Baby delivered gently and easily and placed immediately skin to skin with mom. Spontaneous cry and respirations. Baby bulb suctioned and dried. 3 vessel cord double clamped and cut after cessation of pulsation. Cord blood obtaned. Spontaneous delivery of intact placenta and membranes by aceves mechanism. Pitocin to IV fluids after delivery of placenta. EBL 200 cc. Fundus firm and midline. No lacerations noted. Vaginal sweep negative. Sponge count correct. Mother and baby stable.
[2019-07-21] MEDS ORDERED: LANOLIN/ZINC/DIMETHICONE (LANSINOH) 7 GM TP PRN (06:46)
[2019-07-21] MEDS ORDERED: MAGNESIUM HYDROXIDE (MOM) ORAL LIQD UDC PO PRN (06:46)
[2019-07-21] MEDS: diphenhydrAMINE 25 MG CAP PO PRN (08:32)
[2019-07-21] MEDS: WITCH HAZEL/ GLYCERIN PAD TP PRN (10:10)
[2019-07-21] MEDS: DOCUSATE SODIUM 100 MG CAP PO SCH ×2 (10:10→22:12)
[2019-07-21] MEDS: IBUPROFEN 600 MG TAB PO SCH ×3 (10:11→18:48)
[2019-07-21 18:39] LABS: Hematocrit 27.2 % (30.3-42.9); Hemoglobin 9.3 gm/dl (10.1-14.3)
--- NOTE | 2019-07-21 19:49 | Post Anesthesia Evaluation ---
- Post Anesthesia Evaluation Patient Participated: Yes Airway Patent: Yes Stable Respiratory Function: Yes Nausea/Vomiting: No Temp > 96.8F: Yes Pain Manageable: Yes Adequeate Hydration: Yes Anesthesia Complications: No Block Receding Appropriately: Yes
[2019-07-21] MEDS: HYDROcodone/ACETAMINOPHEN 5-325 MG TAB PO PRN (22:12)
[2019-07-22] MEDS: IBUPROFEN 600 MG TAB PO SCH ×2 (01:33→07:15)
[2019-07-22] MEDS: diphenhydrAMINE 25 MG CAP PO PRN (05:07)
[2019-07-22] MEDS: DOCUSATE SODIUM 100 MG CAP PO SCH (09:30)
[2019-07-22] MEDS ORDERED: ALUM-MAG HYDROXIDE-SIMETHICONE 200-200-20MG/5ML ORAL LIQD 30 ML PO PRN (11:20)
[2019-07-22] MEDS: HYDROcodone/ACETAMINOPHEN 5-325 MG TAB PO PRN (12:06)
[2019-07-22] MEDS: WITCH HAZEL/ GLYCERIN PAD TP PRN (12:06)
--- NOTE | 2019-07-22 12:19 | Progress Note ---
Assessment and Plan - Patient Problems (1) Vaginal delivery Current Visit: No Status: Acute Plan to address problem: D/C later today if infant ok for d/c F/U at office in 6 wks for routine PP visit (2) Anemia Current Visit: Yes Status: Acute Qualifiers: Anemia type: iron deficiency Plan to address problem: Asymptomatic Continue daily oral iron supplementation as directed Increase iron rich foods into diet Subjective - Subjective Date of service: 07/22/19 Principal diagnosis: S/P ; PPD#1 Interval history: See admission H & P and OB delivery summary Patient reports: appetite normal, voiding normally, pain well controlled, flatus, ambulating normally, no bowel movement [place]: doing well, bottle feeding (and ) Objective - Vital Signs Latest vital signs: Vital Signs Temp Pulse Resp BP BP Pulse Ox 07/22/19 12:06 18 07/22/19 08:00 98.2 F 80 20 98/52 07/22/19 07:15 18 07/22/19 02:00 97.9 F 78 20 113/71 95 07/21/19 17:29 97.9 F 79 18 119/68 97 07/21/19 12:52 98.1 F 86 18 122/59 97 Intake and Output 07/21/19 07/22/19 07/22/19 23:59 07:59 15:59 Intake Total 240 480 320 Balance 240 480 320 Intake: Oral 240 480 320 Other: Total, Intake Amount 240 240 320 # Voids Indwelling Catheter 1 1 1 - Exam Breasts: Present: normal Cardiovascular: Present: Regular rate Lungs: Present: Normal air movement Abdomen: Present: soft Uterus: Present: firm, fundal height below umbilicus (U-1) Extremities: Present: edema (slight edema in BLE) Deep Tendon Reflex Grade: Normal +2 - Labs Labs: Abnormal lab results 07/21/19 Range/Units 18:18 Hgb 9.3 L (10.1-14.3) gm/dl Hct 27.2 L (30.3-42.9) %
--- NOTE | 2019-07-22 12:22 | Discharge Summary ---
Providers - Providers Date of Admission: 07/19/19 20:36 Date of discharge: 07/22/19 (1500) Attending physician: JANI MCLEOD MD Primary care physician: JANI MCLEOD MD Hospitalization Reason for admission: active labor, IUP - Delivery: Episiotomy: none Laceration: none Other procedures: none complications: none Discharge diagnosis: IUP at term delivered, other (anemia) baby: male Hospital course: See admission H & P, OB delivery summary and PP progress notes Condition at discharge: Stable Disposition: DC-01 TO HOME OR SELFCARE - Discharge Diagnoses (1) Vaginal delivery Status: Acute (2) Anemia Status: Acute Qualifiers: Anemia type: iron deficiency Plan - Discharge Medications Prescriptions: Ferrous Sulfate [Feosol 325 MG tab] 325 mg PO BID 30 Days #60 tablet - Provider Discharge Summary Activity: routine, no sex for 6 weeks, no heavy lifting 4 weeks, no strenuous exercise Diet: other (Iron rich diet) Instructions: routine Additional instructions: [] Smoking cessation referral if applicable(refer to patient education folder for contact #) [] Refer to [facility] Booklet Call your doctor immediately for: * Fever > 100.5 * Heavy vaginal bleeding ( >1 pad per hour) * Severe persistent headache * Shortness of breath * Reddened, hot, painful area to leg or breast * Drainage or odor from incision. * Keep incision clean and dry at all times and follow doctor's instructions regarding bathing/showering - Follow up plan Follow up: JANI MCLEOD MD [Primary Care Provider] - 6 Weeks
[2019-07-22 16:22] VITALS: BP 118/60
[2019-07-22] MEDS ORDERED: FERROUS SULFATE 325 MG TAB PO SCH (22:00)
== END 2019-07-22 16:20 | disposition home or self-care (01) | DRG 774 ==
LOC: TRG 19:50 → APU 19:52 → TRG 20:36 → LD 20:36 → OB 07-21 10:00
PROVIDERS: ADMIT Obstetrics & Gynecology; ATTEND Obstetrics & Gynecology
PROC: 10E0XZZ Delivery of Products of Conception, External Approach (ICD-10-PCS; principal; 2019-07-21)
PROC: 3E0R3BZ Introduction of Anesthetic Agent into Spinal Canal, Percutaneous Approach (ICD-10-PCS; 2019-07-21)
PROC: 00HU33Z Insertion of Infusion Device into Spinal Canal, Percutaneous Approach (ICD-10-PCS; 2019-07-21)
DX: O42.913 Preterm premature rupture of membranes, unspecified as to length of time between rupture and onset of labor, third trimester (principal); O98.513 Other viral diseases complicating pregnancy, third trimester; O99.214 Obesity complicating childbirth; E66.9 Obesity, unspecified; O99.52 Diseases of the respiratory system complicating childbirth; J45.909 Unspecified asthma, uncomplicated; O99.344 Other mental disorders complicating childbirth; F32.9 Major depressive disorder, single episode, unspecified; O16.4 Unspecified maternal hypertension, complicating childbirth; O99.02 Anemia complicating childbirth; D50.9 Iron deficiency anemia, unspecified; Z3A.36 36 weeks gestation of pregnancy; Z37.0 Single live birth; Z83.3 Family history of diabetes mellitus; Z82.49 Family history of ischemic heart disease and other diseases of the circulatory system; Z88.2 Allergy status to sulfonamides; Z88.8 Allergy status to other drugs, medicaments and biological substances; A60.00 Herpesviral infection of urogenital system, unspecified
CPT/HCPCS: 36415; 80053; 82962; 83615; 83735; 84550; 85014; 85018; 85025; 85027; 86592; 86850; 86900; 86901; G0378; A6250; J0290; J0702; J1200; J2405; J2590; J3010; J3490; J7120; J7121

== ENCOUNTER 2019-08-10 17:16 | Observation (INO) | payer MEDICAID ==
[2019-08-10] MEDS ORDERED: HYDROmorphone 1 MG/1 ML INJ IV ONE ×3 (18:53→22:30)
[2019-08-10] MEDS ORDERED: ONDANSETRON 4 MG/2 ML INJ IV ONE (18:53)
--- NOTE | 2019-08-10 18:55 | Emergency Department Report ---
ED Headache HPI - General Chief Complaint: Headache Stated Complaint: BP HIGH, BLURRY VISION Time Seen by Provider: 08/10/19 17:59 Source: patient Exam Limitations: no limitations - History of Present Illness Initial Comments: 34-year-old female with a past medical history of GERD status post vaginal delivery July 21, 2019 presents to the hospital complaining of uncontrolled bl ood pressure and persistent headache. Patient was admitted here July 27 and to the for the same symptoms. Patient started having at headache 1 week and was admitted during that time for headache/possible preeclampsia and was treated with mag drip, labetalol, Fioricet, and IV Lasix during admission. Patient subsequently discharged on labetalol 200 mg twice daily and Fioricet. Patient states she is only taking labetalol 100 mg twice daily with last dose this morning. Despite taking the prescribed medication she is continued to have a constant frontal and posterior headache with pressure behind the eyes. Patient only has temporary relief in headache after taking Fioricet. Patient has been experiencing intermittent paresthesias to fingertips and toes for the past week. For the past few days she has developed blurred vision. Patient also complains of some mild leg edema. Patient developed nausea with vomiting since arriving in the ED. Patient apparently went directly to labor and delivery, a cold met was called, and patient was subsequently brought to the ED for evaluation. Patient denies a history of hypertension other than during her . As per medical record review it is listed that patient has chronic hypertension and was treated with 100 mg twice daily. I am unsure if patient increase her dose as indicated on recent OB discharge summary. Patient states her blood pressures at home have ranged from [id number]. She went to the fire department prior to arrival and her blood pressure was 181/119 Patient denies a diagnosis of preeclampsia. Allergies/Adverse Reactions: Allergies butorphanol tartrate [From Stadol] Allergy (Verified 07/19/19 21:39) Swelling Sulfa (Sulfonamide Antibiotics) Allergy (Verified 07/19/19 21:39) Itching Home Medications: Ambulatory Orders Acetaminophen [Tylenol] 325 mg PO PRN 07/19/19 valACYclovir [Valtrex] 500 mg PO DAILY 07/19/19 Ferrous Sulfate [Feosol 325 MG tab] 325 mg PO BID 30 Days #60 tablet 07/22/19 Butalb/Acetamin/Caff 50-325-40 [Fioricet 50-325-40] 1 tab PO Q6HR PRN #10 tab 07/29/19 labetaloL [Labetalol 200mg TAB] 200 mg PO BID #60 tablet 07/29/19 ED Review of Systems ROS: Stated complaint: BP HIGH, BLURRY VISION Other details as noted in HPI Comment: All other systems reviewed and negative ED Past Medical Hx - Past Medical History Previous Medical History?: Yes Hx Hypertension: No Hx Diabetes: No Hx Deep Vein Thrombosis: No Hx GERD: Yes Hx Renal Disease: No Hx Sickle Cell Disease: No Hx Arthritis: Yes (Knee, back) Hx Seizures: No Hx Asthma: Yes Hx HIV: No Additional medical history: Vaginal [id number]. iron deficiency anemia - Surgical History Past Surgical History?: Yes Additional Surgical History: left knee surgeryRight ovarian cystectomy - Social History Smoking Status: Former Smoker - Medications Home Medications: Home Medications Medication Instructions Recorded Confirmed Last Taken Type Acetaminophen [Tylenol] 325 mg PO PRN 07/19/19 2 Days Ago History ~07/17/19 valACYclovir [Valtrex] 500 mg PO DAILY 07/19/19 07/19/19 2 Days Ago History ~07/17/19 1 tablet Ferrous Sulfate [Feosol 325 MG tab] 325 mg PO BID 30 Days #60 tablet 07/22/19 Unknown Rx Butalb/Acetamin/Caff 50-325-40 1 tab PO Q6HR PRN #10 tab 07/29/19 Unknown Rx [Fioricet 50-325-40] labetaloL [Labetalol 200mg TAB] 200 mg PO BID #60 tablet 07/29/19 Unknown Rx ED Physical Exam - General Limitations: No Limitations - Other Other exam information: General: No acute distress Head: Atraumatic Eyes: normal appearance, pupils equal reactive to light, extraocular movements ENT: Moist mucous membranes Neck: Normal appearance, no midline tenderness Chest: Clear to auscultation bilaterally CV: Regular rate and rhythm Abdomen: Soft, normal bowel sounds, nontender, nondistended, no rebound or guarding Back: Normal inspection Extremity: Normal inspection, full range of motion, no pitting edema Neuro: Alert O x 3, no facial asymmetry, speech clear, decreased sensation to light touch of the left side of face, left arm, left leg. Bilateral leg weakness 3/5. Psych: Appropriate behavior Skin: No rash ED Course Vital Signs 08/10/19 08/10/19 08/10/19 17:22 18:53 18:57 Temperature 98.5 F Pulse Rate 107 H 86 Respiratory 20 18 Rate Blood Pressure 138/89 Blood Pressure 166/89 [Right] O2 Sat by Pulse 97 99 Oximetry 08/10/19 08/10/19 08/10/19 18:58 19:00 19:16 Temperature Pulse Rate 87 83 Respiratory 18 29 H 22 Rate Blood Pressure 166/87 151/92 Blood Pressure [Right] O2 Sat by Pulse 99 98 99 Oximetry 08/10/19 08/10/19 08/10/19 19:18 19:24 19:25 Temperature Pulse Rate 81 Respiratory 18 18 Rate Blood Pressure 151/92 Blood Pressure [Right] O2 Sat by Pulse Oximetry 08/10/19 08/10/19 08/10/19 19:30 19:45 20:00 Temperature Pulse Rate 92 H 73 77 Respiratory 19 28 H 40 H Rate Blood Pressure 151/92 161/88 161/88 Blood Pressure [Right] O2 Sat by Pulse 99 96 97 Oximetry 08/10/19 08/10/19 08/10/19 20:34 20:46 21:00 Temperature Pulse Rate 90 80 73 Respiratory 12 17 13 Rate Blood Pressure 161/88 181/102 181/102 Blood Pressure [Right] O2 Sat by Pulse 99 98 98 Oximetry 08/10/19 08/10/19 08/10/19 21:16 21:30 21:46 Temperature Pulse Rate 81 74 80 Respiratory 12 21 16 Rate Blood Pressure 188/109 188/109 188/109 Blood Pressure [Right] O2 Sat by Pulse 99 98 96 Oximetry 08/10/19 08/10/19 08/10/19 22:00 22:16 22:30 Temperature Pulse Rate 71 71 68 Respiratory 16 21 27 H Rate Blood Pressure 188/109 159/126 164/90 Blood Pressure [Right] O2 Sat by Pulse 98 97 94 Oximetry 08/10/19 08/10/19 22:35 22:50 Temperature Pulse Rate 78 74 Respiratory Rate Blood Pressure 164/90 164/90 Blood Pressure [Right] O2 Sat by Pulse Oximetry ED Medical Decision Making - Lab Data Result diagrams: 08/10/19 18:57 08/10/19 18:57 Lab Results 08/10/19 08/10/19 08/10/19 Range/Units 18:57 18:57 20:58 WBC 7.7 (4.5-11.0) K/mm3 RBC 4.88 (3.65-5.03) M/mm3 Hgb 11.2 (10.1-14.3) gm/dl Hct 36.0 (30.3-42.9) % MCV 74 L (79-97) fl MCH 23 L (28-32) pg MCHC 31 (30-34) % RDW 19.6 H (13.2-15.2) % Plt Count 328 (140-440) K/mm3 Lymph % (Auto) 30.0 (13.4-35.0) % [place] % (Auto) 8.1 H (0.0-7.3) % Eos % (Auto) 2.5 (0.0-4.3) % Baso % (Auto) 0.2 (0.0-1.8) % Lymph # 2.3 (1.2-5.4) K/mm3 [place] # 0.6 (0.0-0.8) K/mm3 Eos # 0.2 (0.0-0.4) K/mm3 Baso # 0.0 (0.0-0.1) K/mm3 Seg Neutrophils % 59.2 (40.0-70.0) % Seg Neutrophils # 4.5 (1.8-7.7) K/mm3 Sodium 143 (137-145) mmol/L Potassium 3.7 (3.6-5.0) mmol/L Chloride 105.1 (98-107) mmol/L Carbon Dioxide 24 (22-30) mmol/L Anion Gap 18 mmol/L BUN 7 (7-17) mg/dL Creatinine 0.8 (0.7-1.2) mg/dL Estimated GFR > 60 ml/min BUN/Creatinine Ratio 9 % Glucose 88 (65-100) mg/dL Uric Acid 7.4 (3.5-7.6) mg/dL Calcium 9.2 (8.4-10.2) mg/dL Magnesium 2.10 (1.7-2.3) mg/dL Total Bilirubin < 0.20 (0.1-1.2) mg/dL AST 16 (5-40) units/L ALT 16 (7-56) units/L Alkaline Phosphatase 67 (35-129) units/L Lactate Dehydrogenase 208 H (91-180) units/L Total Protein 7.0 (6.3-8.2) g/dL Albumin 3.7 L (3.9-5) g/dL Albumin/Globulin Ratio 1.1 % Urine Color Yellow (Yellow) Urine Turbidity Clear (Clear) Urine pH 7.0 (5.0-7.0) Ur Specific [place] 1.012 (1.003-1.030) Urine Protein <15 mg/dl (Negative) mg/dL Urine Glucose (UA) Neg (Negative) mg/dL Urine Ketones Neg (Negative) mg/dL Urine Blood Neg (Negative) Urine Nitrite Neg (Negative) Urine Bilirubin Neg (Negative) Urine Urobilinogen < 2.0 (<2.0) mg/dL Ur Leukocyte Esterase Neg (Negative) Urine WBC (Auto) 2.0 (0.0-6.0) /HPF Urine RBC (Auto) < 1.0 (0.0-6.0) /HPF U Epithel Cells (Auto) 3.0 (0-13.0) /HPF Urine Bacteria (Auto) 1+ (Negative) /HPF - Radiology Data Radiology results: report reviewed Examination: CT of the head without contrast Clinical information: headache Comparison: CT of the head without contrast, 10/02/2015 Technical: Multiple axial CT images of the head were obtained without intravenous contrast. Sagittal and coronal reformats were obtained. All CTs at this facility utilize dose reduction techniques including automated exposure control, iterative reconstruction and weight based dosing when appropriate to reduce patient radiation dose to as low as reasonable achievable. Findings: There is no CT evidence of acute intracranial hemorrhage or large territorial infarct. The ventricular system remains normal in size. No extra-axial fluid collections are identified. Evaluation of the calvarium demonstrates no evidence of acute bony abnormality. The visualized paranasal sinuses and mastoid air cells are clear. Impression: 1. No CT evidence of acute intracranial process. - Medical Decision Making Patient has intractable headache despite multiple doses of Dilaudid and Fioricet. Patient also received meclizine and Zofran for vertigo symptoms and nausea. Patient provided p.o. labetalol 100 mg x 2. Blood pressure currently in the 160s/90s. As per medical record patient does have a history of chronic hypertension but patient states she has been hypertensive only during the beginning of her . At this point patient continues to have headache, elevation of blood pressure, and neurologic symptoms with a normal CAT scan. No clinical signs of edema or proteinuria to suggest preeclampsia. Case discussed with [employer] Dr. Walker who does not advise magnesium drip at this time. Will accept patient for admission to the hospital for further treatment Critical Care Time: No Critical care attestation.: If time is entered above; I have spent that time in minutes in the direct care of this critically ill patient, excluding procedure time. ED Disposition Clinical Impression: Intractable headache, headache, Uncontrolled hypertension, Left sided numbness Disposition: OP ADMIT IP TO THIS HOSP Is pt being admited?: Yes Condition: Stable Time of Disposition: 23:05 (Dr Andrews/ob)
[2019-08-10] MEDS ORDERED: BUTALB/ACETAMINOPHEN/CAFFEINE TAB PO ONE (19:01)
[2019-08-10 19:20] LABS: Basophils % (Auto) 0.2 % (0.0-1.8); Eosinophils # (Auto) 0.2 K/mm3 (0.0-0.4); Eosinophils % (Auto) 2.5 % (0.0-4.3); Hemoglobin 11.2 gm/dl (10.1-14.3); Lymphocytes # (Auto) 2.3 K/mm3 (1.2-5.4); Mean Corpuscular HGB Conc 31 % (30-34); Mean Corpuscular Volume 74 fl (79-97); Monocytes # (Auto) 0.6 K/mm3 (0.0-0.8); Monocytes % (Auto) 8.1 % (0.0-7.3); Platelet Count 328 K/mm3 (140-440); Red Blood Count 4.88 M/mm3 (3.65-5.03); Red Cell Distribution Width 19.6 % (13.2-15.2)
[2019-08-10] MEDS ORDERED: MECLIZINE 25 MG TAB PO ONE (19:31)
[2019-08-10 19:40] LABS: Alanine Aminotransferase 16 units/L (7-56); Albumin 3.7 g/dL (3.9-5); BUN/Creatinine Ratio 9; Blood Urea Nitrogen 7 mg/dL (7-17); Calcium 9.2 mg/dL (8.4-10.2); Hemolysis Index 4; Uric Acid 7.4 mg/dL (3.5-7.6)
--- NOTE | 2019-08-10 20:52 | Cat Scan Report ---
Examination: CT of the head without contrast Clinical information: headache Comparison: CT of the head without contrast, 10/02/2015 Technical: Multiple axial CT images of the head were obtained without intravenous contrast. Sagittal and coronal reformats were obtained. All CTs at this facility utilize dose reduction techniques inc luding automated exposure control, iterative reconstruction and weight based dosing when appropriate to reduce patient radiation dose to as low as reasonable achievable. Findings: There is no CT evidence of acute intracranial hemorrhage or large territorial infarct. The ventricular system remains normal in size. No extra-axial fluid collections are identified. Evaluation of the calvarium demonstrates no evidence of acute bony abnormality. The visualized parana julissa sinuses and mastoid air cells are clear. Impression: 1. No CT evidence of acute intracranial process. Signer Name: Yaima Niño MD Signed: 08/10/2019 8:48 PM Workstation Name: [id number]
[2019-08-10 21:51] LABS: Bacteria,Urine 1+ /HPF (Negative); Bilirubin,Urine NEG (Negative); Blood,Urine NEG (Negative); Color,Urine Yellow (Yellow); Protein,Urine <15 mg/dL mg/dL (Negative); RBC,Urine < 1.0 /HPF (0.0-6.0); Urobilinogen,Urine < 2.0 mg/dL (<2.0)
[2019-08-11] MEDS ORDERED: MORPHINE 4 MG/1 ML INJ IV PRN (02:01)
[2019-08-11] MEDS ORDERED: WITCH HAZEL/ GLYCERIN PAD TP PRN (02:07)
[2019-08-11] MEDS ORDERED: ACETAMINOPHEN 325 MG TAB PO PRN (15:52)
[2019-08-11] MEDS: BUTALB/ACETAMINOPHEN/CAFFEINE TAB PO PRN ×2 (17:17→21:59)
[2019-08-11] MEDS: NIFEdipine XL 30 MG TAB PO SCH (17:21)
--- NOTE | 2019-08-11 18:28 | Progress Note ---
Assessment and Plan - Patient Problems (1) Preeclampsia Current Visit: Yes Status: Acute Plan to address problem: Will continue obs to allow time for BP control. (2) Uncontrolled hypertension Current Visit: Yes Status: Acute Subjective - Subjective Date of service: 08/11/19 Principal diagnosis: preeclampsia Interval history: 07/21/2019. Admitted through the er for elevated BPs. Patient reports: appetite normal, voiding normally, pain well controlled, ambulating normally Objective - Vital Signs Latest vital signs: Vital Signs Temp Pulse Pulse Resp Resp BP BP 08/11/19 15:21 98.1 F 79 20 156/94 08/11/19 10:46 89 19 148/84 08/11/19 08:25 84 08/11/19 08:04 84 146/91 08/11/19 07:54 98.0 F 20 146/91 08/11/19 04:56 97.9 F 80 20 150/82 08/11/19 01:25 98.3 F 77 20 20 154/95 08/11/19 00:46 157/97 08/11/19 00:45 98 F 79 18 157/97 08/11/19 00:30 11 L 157/97 08/11/19 00:16 19 157/97 08/11/19 00:01 10 L 157/97 08/11/19 00:00 22 164/93 08/10/19 23:46 0 L 164/93 08/10/19 23:30 14 164/93 08/10/19 23:16 11 L 164/93 08/10/19 23:00 19 160/89 08/10/19 22:50 74 164/90 08/10/19 22:46 18 164/90 08/10/19 22:35 78 164/90 08/10/19 22:30 68 27 H 164/90 08/10/19 22:16 71 21 159/126 08/10/19 22:00 71 16 188/109 08/10/19 21:46 80 16 188/109 08/10/19 21:30 74 21 188/109 08/10/19 21:16 81 12 188/109 08/10/19 21:00 73 13 181/102 08/10/19 20:46 80 17 181/102 08/10/19 20:34 90 12 161/88 08/10/19 20:00 77 40 H 161/88 08/10/19 19:45 73 28 H 161/88 08/10/19 19:30 92 H 19 151/92 08/10/19 19:25 81 151/92 08/10/19 19:24 18 08/10/19 19:18 18 08/10/19 19:16 83 22 151/92 08/10/19 19:00 87 29 H 166/87 08/10/19 18:58 18 08/10/19 18:57 18 166/89 08/10/19 18:53 86 Pulse Ox 08/11/19 15:21 97 08/11/19 10:46 08/11/19 08:25 08/11/19 08:04 08/11/19 07:54 08/11/19 04:56 96 08/11/19 01:25 100 08/11/19 00:46 99 08/11/19 00:45 99 08/11/19 00:30 99 08/11/19 00:16 99 08/11/19 00:01 96 08/11/19 00:00 94 08/10/19 23:46 92 08/10/19 23:30 99 08/10/19 23:16 98 08/10/19 23:00 90 08/10/19 22:50 08/10/19 22:46 98 08/10/19 22:35 08/10/19 22:30 94 08/10/19 22:16 97 08/10/19 22:00 98 08/10/19 21:46 96 08/10/19 21:30 98 08/10/19 21:16 99 08/10/19 21:00 98 08/10/19 20:46 98 08/10/19 20:34 99 08/10/19 20:00 97 08/10/19 19:45 96 08/10/19 19:30 99 08/10/19 19:25 08/10/19 19:24 08/10/19 19:18 08/10/19 19:16 99 08/10/19 19:00 98 08/10/19 18:58 99 08/10/19 18:57 99 08/10/19 18:53 Intake and Output 08/11/19 08/11/19 08/11/19 07:59 15:59 23:59 Intake Total 360 1840 Balance 360 1840 Intake: Oral 360 1840 Other: Total, Intake Amount 360 800 Voiding Method Toilet Toilet # Voids 1 Void 1 1 - Exam Lungs: Present: Normal air movement - Labs Labs: Abnormal lab results 08/10/19 08/10/19 Range/Units 18:57 18:57 MCV 74 L (79-97) fl MCH 23 L (28-32) pg RDW 19.6 H (13.2-15.2) % [place] % (Auto) 8.1 H (0.0-7.3) % Lactate Dehydrogenase 208 H (91-180) units/L Albumin 3.7 L (3.9-5) g/dL
[2019-08-12] MEDS ORDERED: diphenhydrAMINE 25 MG CAP PO PRN (00:58)
--- NOTE | 2019-08-12 09:28 | History and Physical Report ---
History of Present Illness Date of examination: 08/12/19 Date of admission: 08/10/19 23:07 Chief complaint: headache Past History - Obstetrical History : 1 Medications and Allergies Allergies Allergy/AdvReac Type Severity Reaction Status Date / Time butorphanol tartrate Allergy Swelling Verified 07/19/19 21:39 [From Stadol] Sulfa (Sulfonamide Allergy Itching Verified 07/19/19 21:39 Antibiotics) Home Medications Medication Instructions Recorded Confirmed Last Taken Type Acetaminophen [Tylenol] 325 mg PO PRN 07/19/19 2 Days Ago History ~07/17/19 valACYclovir [Valtrex] 500 mg PO DAILY 07/19/19 08/11/19 2 Days Ago History ~07/17/19 1 tablet Ferrous Sulfate [Feosol 325 MG tab] 325 mg PO BID 30 Days #60 tablet 07/22/19 08/11/19 Unknown Rx Butalb/Acetamin/Caff 50-325-40 1 tab PO Q6HR PRN #10 tab 07/29/19 08/11/19 Unknown Rx [Fioricet 50-325-40] labetaloL [Labetalol 200mg TAB] 200 mg PO BID #60 tablet 07/29/19 08/11/19 Unknown Rx Active Meds: Active Medications Acetaminophen (Tylenol) 650 mg PO Q6H PRN PRN Reason: Pain, Mild (1-3) Acetaminophen/Butalbital/Caffeine (Fioricet) 1 tab PO Q4H PRN PRN Reason: Headache Last Admin: 08/11/19 21:59 Dose: 1 tab Documented by: Diphenhydramine HCl (Benadryl) 25 mg PO Q8H PRN PRN Reason: Itching Last Admin: 08/12/19 01:11 Dose: 25 mg Documented by: Labetalol HCl (Labetalol) 200 mg PO BID CYNTHIA Last Admin: 08/11/19 21:58 Dose: 200 mg Documented by: Morphine Sulfate (Morphine) 4 mg IV Q4H PRN PRN Reason: Pain, Moderate (4-6) Last Admin: 08/11/19 08:11 Dose: 4 mg Documented by: Nifedipine (Procardia Xl) 30 mg PO QDAY [facility] Last Admin: 08/11/19 17:21 Dose: 30 mg Documented by: Reji Yanes/Glycerin (Tucks Pad) 1 each TP PRN PRN PRN Reason: Hemorrhoids Last Admin: 08/11/19 02:27 Dose: 1 each Documented by: - Vital Signs Vital signs: Vital Signs Temp Pulse Resp BP Pulse Ox 98.5 F 105 H 22 138/89 97 08/10/19 17:22 08/10/19 17:22 08/10/19 17:22 08/10/19 17:22 08/10/19 17:22 Temp Pulse Resp BP Pulse Ox 98.1 F 81 20 138/64 94 08/12/19 07:34 08/12/19 07:34 08/12/19 07:34 08/12/19 07:34 08/12/19 07:34 Results Result Diagrams: 08/10/19 18:57 08/10/19 18:57 All other labs normal. Assessment and Plan IQBAL CHTN, non complicant with meds Plans: pain meds antihypertensive pt was d/c to home on HD#2 with BP controlled, IQBAL resolved FUP [facility] 1 week Michele Walker MD
[2019-08-12] MEDS: NIFEdipine XL 30 MG TAB PO SCH (09:52)
[2019-08-12 09:59] VITALS: BP 133/68
--- NOTE | 2019-08-12 10:05 | Progress Note ---
Subjective - Subjective Date of service: 08/12/19 Principal diagnosis: preeclampsia Interval history: stable IQBAL resolved BP controlled on procardia and labetalol Plan for d/c home with PP PE precautions Michele Walker MD Objective - Vital Signs Latest vital signs: Vital Signs Temp Pulse Resp BP BP Pulse Ox 08/12/19 09:52 87 133/68 08/12/19 07:34 98.1 F 81 20 138/64 94 08/12/19 04:32 98.5 F 73 20 144/69 95 08/12/19 01:38 97.8 F 73 20 142/90 08/11/19 21:58 74 158/75 08/11/19 21:57 158/75 08/11/19 20:39 98.7 F 76 18 147/78 97 08/11/19 15:21 98.1 F 79 20 156/94 97 08/11/19 10:46 89 19 148/84 Intake and Output 08/11/19 08/12/19 08/12/19 23:59 07:59 15:59 Intake Total 120 120 Balance 120 120 Intake: Intake, Free Water 120 120 Other: Voiding Method Toilet # Voids Void 1 1
== END 2019-08-12 11:00 | disposition home or self-care (01) ==
LOC: ED 17:16 → OB 23:07
PROVIDERS: ADMIT Obstetrics & Gynecology; ATTEND Obstetrics & Gynecology
DX: O14.95 Unspecified pre-eclampsia, complicating the puerperium (principal); O16.5 Unspecified maternal hypertension, complicating the puerperium; O90.89 Other complications of the puerperium, not elsewhere classified; R51 Headache; R20.0 Anesthesia of skin; O99.53 Diseases of the respiratory system complicating the puerperium; J45.909 Unspecified asthma, uncomplicated; O99.89 Other specified diseases and conditions complicating pregnancy, childbirth and the puerperium; M17.9 Osteoarthritis of knee, unspecified; M47.819 Spondylosis without myelopathy or radiculopathy, site unspecified; Z87.891 Personal history of nicotine dependence; Z79.899 Other long term (current) drug therapy; Z88.2 Allergy status to sulfonamides; Z88.8 Allergy status to other drugs, medicaments and biological substances
CPT/HCPCS: 36415; 70450; 80053; 81001; 83615; 83735; 84550; 85025; 96374; 96375; 96376; 99284; G0378; J1170; J2270; J2405

== ENCOUNTER 2020-01-24 09:52 | Emergency (ER) | payer MEDICAID ==
[2020-01-24] MEDS ORDERED: ALBUTEROL 2.5 MG/3 ML NEBU IH ONE (14:43)
--- NOTE | 2020-01-24 14:46 | Emergency Department Report ---
ED General Adult HPI - General Chief complaint: Abdominal Pain Stated complaint: FATIGUE Time Seen by Provider: 01/24/20 11:50 Source: patient Mode of arrival: Ambulatory Limitations: No Limitations - History of Present Illness Initial comments: This is a 34-year-old obese female she is complaining of flulike symptoms started 5 days ago. Her symptoms consist of earache sore throat runny nose body aches dry cough nausea no vomiting. She also reports being concerned about a sexually transmitted disease she denies any any vaginal discharge at this time but reports lower abdominal discomfort. Denies dysuria no vomiting no diarrhea. Patient in no acute distress -: days(s) (4 days) Associated Symptoms: cough, malaise. denies: confusion, chest pain, fever/chills, headaches, loss of appetite Treatments Prior to Arrival: none - Related Data Previous Rx's Medication Instructions Recorded Last Taken Type NIFEdipine XL [Procardia Xl] 30 mg PO QDAY 30 Days tablet 08/12/19 Unknown Rx labetaloL [Labetalol 200mg TAB] 200 mg PO BID #60 tablet 08/12/19 Unknown Rx Diclofenac 1% [Diclofenac 1% 2 - 4 gm TP QID #100 gel..gram. 09/06/19 Unknown Rx topical gel] Methocarbamol [Robaxin] 500 mg PO TID PRN #30 tablet 09/06/19 Unknown Rx methylPREDNISolone [Medrol 4MG 4 mg PO DAILY #1 tab.ds.pk 09/06/19 Unknown Rx DOSEPAK (21 tabs)] Allergies Allergy/AdvReac Type Severity Reaction Status Date / Time butorphanol tartrate Allergy Swelling Verified 07/19/19 21:39 [From Stadol] Sulfa (Sulfonamide Allergy Itching Verified 07/19/19 21:39 Antibiotics) ED Review of Systems ROS: Stated complaint: FATIGUE Other details as noted in HPI Comment: All other systems reviewed and negative Constitutional: no symptoms reported Eyes: denies: eye pain, eye discharge ENT: ear pain, throat pain. denies: dental pain Respiratory: cough (Dry nonproductive cough). denies: shortness of breath Cardiovascular: denies: chest pain, palpitations, dyspnea on exertion Gastrointestinal: abdominal pain (Abdominal discomfort suprapubic region), nausea. denies: vomiting, constipation Genitourinary: denies: urgency, dysuria, frequency, hematuria, discharge Skin: denies: rash, lesions, change in color, change in hair/nails Neurological: denies: headache, weakness, numbness Psychiatric: denies: depression ED Past Medical Hx - Past Medical History Previous Medical History?: Yes Hx Hypertension: No Hx Congestive Heart Failure: No Hx Diabetes: No Hx Deep Vein Thrombosis: No Hx GERD: Yes Hx Renal Disease: No Hx Sickle Cell Disease: No Hx Arthritis: Yes (Knee, back) Hx Seizures: No Hx Asthma: Yes Hx COPD: No Hx HIV: No Additional medical history: Vaginal [id number]. iron deficiency anemia - Surgical History Past Surgical History?: Yes Additional Surgical History: left knee surgery,Right ovarian cystectomy - Social History Smoking Status: Current Every Day Smoker Substance Use Type: None - Medications Home Medications: Home Medications Medication Instructions Recorded Confirmed Last Taken Type NIFEdipine XL [Procardia Xl] 30 mg PO QDAY 30 Days tablet 08/12/19 Unknown Rx labetaloL [Labetalol 200mg TAB] 200 mg PO BID #60 tablet 08/12/19 Unknown Rx Diclofenac 1% [Diclofenac 1% 2 - 4 gm TP QID #100 gel..gram. 09/06/19 Unknown Rx topical gel] Methocarbamol [Robaxin] 500 mg PO TID PRN #30 tablet 09/06/19 Unknown Rx methylPREDNISolone [Medrol 4MG 4 mg PO DAILY #1 tab.ds.pk 09/06/19 Unknown Rx DOSEPAK (21 tabs)] ED Physical Exam - General Limitations: No Limitations General appearance: alert, in no apparent distress - Head Head exam: Present: atraumatic - Eye Eye exam: Present: normal appearance, EOMI. Absent: scleral icterus, conjunctival injection - ENT ENT exam: Present: normal exam, normal orophraynx, mucous membranes dry, TM's normal bilaterally - Neck Neck exam: Present: normal inspection. Absent: lymphadenopathy - Respiratory Respiratory exam: Present: decreased breath sounds, other (With inspiration patient is coughing but no wheezing auscultated). Absent: respiratory distress, wheezes, rales, rhonchi - Cardiovascular Cardiovascular Exam: Present: regular rate - GI/Abdominal GI/Abdominal exam: Present: soft, normal bowel sounds. Absent: distended, tenderness, guarding, rebound - Rectal Rectal exam: Present: deferred - Extremities Exam Extremities exam: Present: normal inspection - Back Exam Back exam: Present: normal inspection - Neurological Exam Neurological exam: Present: alert, oriented X3 - Psychiatric Psychiatric exam: Present: normal affect - Skin Skin exam: Present: warm, dry, intact ED Course - Reevaluation(s) Reevaluation #1: 01/24/20 16:50 Patient in no distress findings discussed with . Discussed with patient the need to follow-up with outpatient for any concerns for STDs at her primary care doctor or local health department urgent care or Dr. Manzano ED Medical Decision Making - Lab Data Result diagrams: 01/24/20 14:55 01/24/20 14:55 - Radiology Data Radiology results: report reviewed Chest x-ray No cardiopulmonary findings - Medical Decision Making 34-year-old patient with complaint of flulike symptoms lower abdominal discomfort. Chest x-ray with no acute findings. In rapid influenza test negative for influenza A or B. Urine most likely contaminated with elevated epithelial cells. Blood work no acute findings. Results discussed with patient she is to follow-up with her primary care doctor urgent care or local health department for STD screening Critical Care Time: No Critical care attestation.: If time is entered above; I have spent that time in minutes in the direct care of this critically ill patient, excluding procedure time. ED Disposition Clinical Impression: Viral illness Disposition: DC-01 TO HOME OR SELFCARE Is pt being admited?: No Does the pt Need Aspirin: No Condition: Stable Instructions: Viral Respiratory Infection, Cnos-Ss-Yufa, Hand Washing, [id number]-pi-[id number], Viral Respiratory Infection, Abdominal Pain (ED) Additional Instructions: You were tested for influenza a and B and they were both negative your blood work had no acute findings your urine had no acute findings. I recommend that you get consider getting tested for COVID-19 please refer to the list of sites on the pamphlet of given to you. If you develop severe shortness of breath or any or any other worsening symptoms return to the emergency room immediately otherwise follow-up with your primary care doctor in 3 to 5 days. Rest increase your oral fluids to about 6 to 8 glasses of water daily. The chest x-ray that was done showed no signs of pneumonia or bronchitis take Advil 2 to 3 tablets [id number] every 6-8 hours as needed for fever body aches also you can take Tylenol 1 to 2 tablets every 4-6 hours as needed for fever or pain. Referrals: PRIMARY CARE, [Primary Care Provider] - 3-5 Days Time of Disposition: 17:53
[2020-01-24 15:03] LABS: Bilirubin,Urine NEG (Negative); Blood,Urine NEG (Negative); Color,Urine Yellow (Yellow); Mucus,Urine 3+ /HPF; Protein,Urine <15 mg/dL mg/dL (Negative); Urobilinogen,Urine < 2.0 mg/dL (<2.0)
[2020-01-24 15:12] LABS: Hematocrit 35.3 % (30.3-42.9); Hemoglobin 11.8 gm/dl (10.1-14.3); Mean Corpuscular HGB Conc 34 % (30-34); Mean Corpuscular Volume 73 fl (79-97); Platelet Count 311 K/mm3 (140-440); Red Blood Count 4.83 M/mm3 (3.65-5.03); Red Cell Distribution Width 19.2 % (13.2-15.2)
[2020-01-24 15:14] LABS: HCG Qualitative,Urine Negative (Negative)
[2020-01-24 15:28] LABS: Alanine Aminotransferase 10 units/L (7-56); Albumin 3.7 g/dL (3.9-5); Blood Urea Nitrogen 11 mg/dL (7-17); Calcium 9.2 mg/dL (8.4-10.2); Hemolysis Index 53
[2020-01-24 15:33] LABS: BUN/Creatinine Ratio 18
--- NOTE | 2020-01-24 16:01 | XRay Report ---
CHEST 2 VIEWS INDICATION / CLINICAL INFORMATION: cough covid like symptoms. COMPARISON: None available. FINDINGS: SUPPORT DEVICES: None. HEART / MEDIASTINUM: No significant abnormality. LUNGS / PLEURA: No significant pulmonary or pleural abnormality. No pneumothorax. ADDITIONAL FINDINGS: No significant additional findings. IMPRESSION: No acute cardiopulmonary abnormality. Signer Name: Keegan Ramírez MD Signed: 01/24/2020 3:57 PM Workstation Name: [id number]
[2020-01-24 18:03] VITALS: BP 142/84
== END 2020-01-24 17:25 | disposition home or self-care (01) ==
LOC: ED 09:52
DX: B34.9 Viral infection, unspecified (principal); M19.90 Unspecified osteoarthritis, unspecified site; J45.909 Unspecified asthma, uncomplicated; K21.9 Gastro-esophageal reflux disease without esophagitis; F17.200 Nicotine dependence, unspecified, uncomplicated; Z79.899 Other long term (current) drug therapy; Z88.2 Allergy status to sulfonamides; Z88.8 Allergy status to other drugs, medicaments and biological substances; Z98.890 Other specified postprocedural states
CPT/HCPCS: 36415; 71046; 80053; 81001; 81025; 85027; 87400

== ENCOUNTER 2020-02-28 17:22 | Emergency (ER) | payer MEDICAID ==
--- NOTE | 2020-02-28 17:32 | Event Note ---
ED Screening Note Date of service: 02/28/20 Time: 17:28 ED Screening Note: 34-year-old -[place] female presents to the emergency room in excruciating abdominal pain with nausea and vomiting that abruptly started. Patient reports a history of having inflamed bowels. Patient is raging and moving and flaring secondary to pain. Patient is mild distress. Patient is grabbing her epigastric abdomen. This initial assessment/diagnostic orders/clinical plan/treatment(s) is/are subject to change based on patients health status, clinical progression and re- assessment by fellow clinical providers in the ED. Further treatment and workup at subsequent clinical providers discretion. Patient/guardian urged not to elope from the ED as their condition may be serious if not clinically assessed and managed. Initial orders include: Click labs are placed CBC CMP lipase urinalysis CT abdomen with contrast, morphine 4 mg IV, Zofran 4 mg IV, IV with normal saline
[2020-02-28] MEDS ORDERED: ONDANSETRON 4 MG/2 ML INJ ONE (17:35)
[2020-02-28] MEDS ORDERED: MORPHINE 4 MG/1 ML INJ ONE (17:35)
[2020-02-28] MEDS ORDERED: SODIUM CHLORIDE 0.9% 1000 ML 1,000 ML ONE (17:35)
[2020-02-28] MEDS ORDERED: MORPHINE 4 MG/1 ML INJ IV ONE (17:42)
[2020-02-28] MEDS ORDERED: ONDANSETRON 4 MG/2 ML INJ IV ONE ×2 (17:42→17:50)
[2020-02-28] MEDS ORDERED: SODIUM CHLORIDE 0.9% 1000 ML 1,000 ML IV ONE (17:43)
[2020-02-28] MEDS ORDERED: fentaNYL 100 MCG/2 ML INJ IV ONE (17:50)
[2020-02-28] MEDS ORDERED: HYDROmorphone 1 MG/1 ML INJ IV ONE ×2 (17:55→19:05)
[2020-02-28] MEDS ORDERED: DICYCLOMINE 20 MG/2 ML INJ IM ONE (17:55)
--- NOTE | 2020-02-28 18:01 | Emergency Department Report ---
HPI - General Chief Complaint: Abdominal Pain Time Seen by Provider: 02/28/20 17:50 - HPI HPI: Room 42 The patient is a 34-year-old female present with chief complaint of abdominal pain. Patient states she awakened this morning with pain in the epigastric region/right upper quadrant. Patient describes the pain as "1000/10." Patient denies nausea vomiting and diarrhea. Patient denies history of fever. The patient states she had a similar episode in the past and was told her "intestines were inflamed." ED Past Medical Hx - Past Medical History Previous Medical History?: Yes Hx GERD: Yes Hx Arthritis: Yes (Knee, back) Hx Asthma: Yes Additional medical history: Vaginal [id number]. iron deficiency anemia - Surgical History Past Surgical History?: Yes Additional Surgical History: left knee surgery,Right ovarian cystectomy - Family History Family history: no significant - Social History Smoking Status: Never Smoker Substance Use Type: None (Denies illicit drug use) - Medications Home Medications: Home Medications Medication Instructions Recorded Confirmed Last Taken Type NIFEdipine XL [Procardia Xl] 30 mg PO QDAY 30 Days tablet 08/12/19 Unknown Rx labetaloL [Labetalol 200mg TAB] 200 mg PO BID #60 tablet 08/12/19 Unknown Rx Diclofenac 1% [Diclofenac 1% 2 - 4 gm TP QID #100 gel..gram. 09/06/19 Unknown Rx topical gel] Methocarbamol [Robaxin] 500 mg PO TID PRN #30 tablet 09/06/19 Unknown Rx methylPREDNISolone [Medrol 4MG 4 mg PO DAILY #1 tab.ds.pk 09/06/19 Unknown Rx DOSEPAK (21 tabs)] Dicyclomine [Bentyl] 20 mg PO QID #40 tablet 02/28/20 Unknown Rx HYDROcodone/APAP 5-325 [[place] 1 - 2 each PO Q6HR PRN #14 tablet 02/28/20 Unknown Rx 5/325] Promethazine [Phenergan] 25 mg PO Q6HR PRN #20 tab 02/28/20 Unknown Rx Promethazine [Phenergan] 25 mg FL Q6HR PRN #5 supp.rect 02/28/20 Unknown Rx ED Review of Systems ROS: Stated complaint: ABD PAIN Other details as noted in HPI Constitutional: denies: fever Eyes: denies: eye pain ENT: denies: throat pain Respiratory: no symptoms reported Cardiovascular: denies: chest pain Endocrine: no symptoms reported Gastrointestinal: abdominal pain, nausea, vomiting, diarrhea Genitourinary: denies: dysuria Musculoskeletal: denies: back pain Neurological: denies: headache Physical Exam - Physical Exam Vital Signs: Vital Signs 02/28/20 17:23 Temperature 99.3 F Pulse Rate 123 H Respiratory 24 Rate Blood Pressure 170/120 O2 Sat by Pulse 97 Oximetry Physical Exam: GENERAL: The patient is well-developed well-nourished female writhing on stretcher appearing to be in significant discomfort. [] HEENT: Normocephalic. Atraumatic. Extraocular motions are intact. Patient has moist mucous membranes. NECK: Supple. Trachea midline CHEST/LUNGS: Clear to auscultation. There is no respiratory distress noted. HEART/CARDIOVASCULAR: Regular. There is tachycardia. There is no gallop rub or murmur. ABDOMEN: Abdomen is soft, with tenderness to palpation in the right upper quadrant and epigastric region. There is no tenderness to palpation of the left upper quadrant, left lower quadrant, suprapubic region or right lower quadrant. Patient has normal bowel sounds. There is no abdominal distention. SKIN: There is no rash. There is no edema. There is no diaphoresis. NEURO: The patient is awake, alert, and oriented. The patient is cooperative. The patient has normal speech MUSCULOSKELETAL: There is no evidence of acute injury. ED Course Vital Signs 02/28/20 17:23 Temperature 99.3 F Pulse Rate 123 H Respiratory 24 Rate Blood Pressure 170/120 O2 Sat by Pulse 97 Oximetry ED Medical Decision Making - Lab Data Result diagrams: 02/28/20 18:00 02/28/20 18:00 - Radiology Data Radiology results: report reviewed (Right upper quadrant ultrasound), image reviewed (Right upper quadrant ultrasound) [facility] [address] [place] [address] Ultrasound Report Signed Patient: SAIRA URRUTIA MR#: [id number] : 1985 Acct:[id number] Age/Sex: 34 / F ADM Date: 02/28/20 Loc: ED Attending Dr: Ordering Physician: ADAM HARKINS MD Date of Service: 02/28/20 Procedure(s): US abdomen limited Accession Number(s): [id number] cc: ADAM HARKINS MD US abdomen limited INDICATION / CLINICAL INFORMATION: Epigastric/RUQ pain. COMPARISON: 03/18/2019 FINDINGS: Gallbladder contains multiple small stones. Gallbladder wall is not appreciably thickened. Common duct is normal in size. Liver appears negative. IMPRESSION: 1. Cholelithiasis. No sonographic evidence of cholecystitis. Signer Name: Shai Camacho MD Signed: 02/28/2020 7:13 PM Workstation Name: [id number] Transcribed By: TM Dictated By: Shai Camacho MD Electronically Authenticated By: Shai Camacho MD Signed Date/Time: 02/28/201912 DD/ 08 TD/TT: - Differential Diagnosis Acute cholecystitis, symptomatic cholelithiasis, peptic ulcer disease, roderick Critical care attestation.: If time is entered above; I have spent that time in minutes in the direct care of this critically ill patient, excluding procedure time. ED Disposition Clinical Impression: Acute abdominal pain, Symptomatic cholelithiasis Disposition: TO HOME OR SELFCARE Is pt being admited?: No Does the pt Need Aspirin: No Condition: Stable Instructions: Abdominal Pain (ED), Cholelithiasis, Gallbladder Eating Plan Additional Instructions: Return to the emergency department should you develop worsening symptoms, inability to tolerate food or liquids, high fever or any other concerns Prescriptions: Dicyclomine [Bentyl] 20 mg PO QID #40 tablet HYDROcodone/APAP 5-325 [[place] 5/325] 1 - 2 each PO Q6HR PRN #14 tablet PRN Reason: Pain Promethazine [Phenergan] 25 mg PO Q6HR PRN #20 tab PRN Reason: Nausea Promethazine [Phenergan] 25 mg FL Q6HR PRN #5 supp.rect PRN Reason: Vomiting Referrals: OCHOA ERVIN MD [Staff Physician] - 3-5 Days (Dr. Ervin is a general surgeon. Please follow-up with him for further evaluation of your gallbladder) Time of Disposition: 19:43
[2020-02-28 18:25] LABS: Basophils % (Auto) 0.4 % (0.0-1.8); Eosinophils # (Auto) 0.3 K/mm3 (0.0-0.4); Eosinophils % (Auto) 3.9 % (0.0-4.3); Hematocrit 37.5 % (30.3-42.9); Lymphocytes # (Auto) 3.7 K/mm3 (1.2-5.4); Lymphocytes % (Auto) 43.8 % (13.4-35.0); Mean Corpuscular HGB Conc 32 % (30-34); Mean Corpuscular Volume 74 fl (79-97); Monocytes # (Auto) 0.5 K/mm3 (0.0-0.8); Monocytes % (Auto) 5.6 % (0.0-7.3); Platelet Count 391 K/mm3 (140-440); Red Blood Count 5.08 M/mm3 (3.65-5.03); Red Cell Distribution Width 18.2 % (13.2-15.2)
[2020-02-28 18:50] LABS: Alanine Aminotransferase 10 units/L (7-56); Albumin 4.3 g/dL (3.9-5); Blood Urea Nitrogen 9 mg/dL (7-17); Calcium 9.2 mg/dL (8.4-10.2); Hemolysis Index 12
[2020-02-28 18:52] LABS: BUN/Creatinine Ratio 13; Creatine Kinase MB < 1.0 ng/mL (0.0-4.0)
--- NOTE | 2020-02-28 19:17 | Ultrasound Report ---
US abdomen limited INDICATION / CLINICAL INFORMATION: Epigastric/RUQ pain. COMPARISON: 03/18/2019 FINDINGS: Gallbladder contains multiple small stones. Gallbladder wall is not appreciably thickened. Common morenita t is normal in size. Liver appears negative. IMPRESSION: 1. Cholelithiasis. No sonographic evidence of cholecystitis. Signer Name: Shai Camacho MD Signed: 02/28/2020 7:13 PM Workstation Name: [id number]
[2020-02-28 21:35] VITALS: BP 100/50
== END 2020-02-28 20:50 | disposition home or self-care (01) ==
LOC: ED 17:22
DX: K80.20 Calculus of gallbladder without cholecystitis without obstruction (principal); R10.13 Epigastric pain; K21.9 Gastro-esophageal reflux disease without esophagitis; M19.91 Primary osteoarthritis, unspecified site; J45.909 Unspecified asthma, uncomplicated; Z98.890 Other specified postprocedural states; Z79.899 Other long term (current) drug therapy; Z88.2 Allergy status to sulfonamides; Z88.8 Allergy status to other drugs, medicaments and biological substances
CPT/HCPCS: 36415; 76705; 80053; 82550; 82553; 83690; 84703; 85025; 96361; 96372; 96374; 96375; 96376; 99284; J0500; J1170; J2270; J2405; J3010; J7030

== ENCOUNTER 2020-07-14 18:24 | Emergency (ER) | payer MEDICAID | END 2020-07-14 22:15 | disposition left against medical advice (07) | LOC: ED 18:24 | DX: Z00.8 Encounter for other general examination (principal); Z53.21 Procedure and treatment not carried out due to patient leaving prior to being seen by health care provider ==

== ENCOUNTER 2020-10-07 15:46 | Outpatient (CLI) | payer MEDICAID ==
--- NOTE | 2020-10-07 17:05 | XRay Report ---
Cervical spine 4 views INDICATION: Neck pain FINDINGS: Alignment appears normal C1-C7. Cervicothoracic junction is not well seen. Odontoid appears normal. No prevertebral soft tissue swelling. Thoracic spine 2 views FINDINGS: There is 15 degrees curvature the spine convexity to the right and the thoracic spine. 15 d egrees curvature to the left in the thoracolumbar spine. Pedicles appear normal throughout. Lumbar spine 2 views INDICATION: Back pain FINDINGS: Thoracolumbar scoliosis measuring 15 degrees curvature to the left. No compression fracture s seen. No subluxation. Signer Name: Guillermo Aaron MD Signed: 10/07/2020 5:01 PM Workstation Name: [id number]
== END 2020-10-07 15:47 | disposition home or self-care (01) ==
LOC: XRAY 15:46
PROVIDERS: ATTEND Orthopaedic Surgery
DX: M47.815 Spondylosis without myelopathy or radiculopathy, thoracolumbar region (principal); M41.85 Other forms of scoliosis, thoracolumbar region
CPT/HCPCS: 72040; 72070; 72100